=== PATIENT | male | born 1940 | race Caucasian/White ===

== ENCOUNTER 2022-01-15 12:39 | Inpatient (IN) ==
[2022-01-15 13:24] LABS: Appearance Urine Clear (Clear); Bilirubin Urine Negative (Negative); Blood Urine Negative (Negative); Color Urine Yellow; Glucose Urine UA Negative (Negative); Ketones Urine Negative (Negative); Leukocyte Esterase Urine Negative (Negative); Nitrite Urine Negative (Negative); Protein Urine Negative (Negative); Specific Gravity Urine 1.006 (1.000-1.030); Urobilinogen Urine Negative (Negative); pH Urine 6.5 (4.5-7.5)
[2022-01-15 14:07] LABS: Basophils # (auto) 0.06 K/uL (0-0.2); Basophils % (auto) 1.2 %; Eosinophils # (auto) 0.36 K/uL (0-0.50); Eosinophils % (auto) 7.5 %; Hematocrit (blood only) 42.6 % (40.1-51.0); Immature Granulocytes # (auto) 0.01 K/uL (0.00-0.02); Immature Granulocytes % (auto) 0.2 %; Lymphocytes # (auto) 1.51 K/uL (1.2-3.4); Lymphocytes % (auto) 31.4 %; Mean Corpuscular Hemoglobin 31.2 pg (25.0-34.0); Mean Corpuscular Hgb Conc 32.9 g/dL (32.0-36.0); Mean Corpuscular Volume 94.9 fL (80.0-100.0); Mean Platelet Volume 10.6 fL (9.4-12.4); Monocytes # (auto) 0.47 K/uL (0.24-0.82); Monocytes % (auto) 9.8 %; Neutrophils % (auto) 49.9 %; Platelet Count 199 K/uL (130-400); RDW Coefficient of Variation 12.6 % (11.5-14.5); Red Blood Count 4.49 M/uL (4.63-6.08); White Blood Count 4.81 K/ul (4.8-10.8)
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
[2022-01-15 14:24] LABS: INR 1.1 (0.9-1.1); Partial Thromboplastin Time 28.3 Seconds (21.0-31.0); Prothrombin Time 11.7 Seconds (9.0-12.0)
[2022-01-15 14:28] LABS: Alanine Aminotransferase 19 U/L (7-52); Albumin Globulin Ratio 1.3 (0.9-2); Albumin Level 4.3 gm/dl (3.4-5.0); Alkaline Phosphatase 95 U/L (34-104); Anion Gap 4 (3-11); Aspartate Aminotransferase 19 U/L (13-39); BUN Creatinine Ratio 8.5 (10-20); Bilirubin,Total 0.5 mg/dl (0.2-1.0); Blood Urea Nitrogen 9 mg/dl (6-23); Calcium 9.3 mg/dl (8.5-10.1); Carbon Dioxide 32 mmol/L (21-32); Chloride 104 mmol/L (98-107); Creatine Kinase 77 U/L (30-223); Est GFR (African American) 74.9 ml/min; Est GFR (Non-African American) 64.6 ml/min; Globulin 3.2 gm/dl (2.5-4.0); Glucose 91 mg/dl (70-99(Fasting)); Potassium 3.8 mmol/L (3.5-5.1); Sodium 140 mmol/L (136-145); Total Protein 7.5 gm/dl (6.0-8.3)
[2022-01-15 14:32] LABS: Troponin I High Sensitivity 4.7 pg/ml (0-20)
--- NOTE | 2022-01-15 15:46 | XRay Report ---
XR chest 1V portable CLINICAL HISTORY: weakness TECHNIQUE: Single frontal radiograph of the chest was obtained. Comparison: None available at the time of this dictation. FINDINGS: No lines and tubes are seen. Calcified aortic knob is seen. Airspace opacity is seen in the left lowe r lung. No evidence of pleural effusion or pneumothorax. Scoliosis and degenerative changes of the sp ine are seen. IMPRESSION: Airspace opacity in the left lower lung likely represents atelectasis with or without superimposed as piration/pneumonia. ACT 112: Negative or not required by law. Electronically signed by: Mirza Chaparro M.D. 01/15/2022 3:45 PM
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
--- NOTE | 2022-01-15 17:22 | Electrocardiogram Report ---
Test Reason : Blood Pressure : / mmHG Vent. Rate : 054 BPM Atrial Rate : 052 BPM P-R Int : 174 ms QRS Dur : 114 ms QT Int : 440 ms P-R-T Axes : 000 -11 022 degrees QTc Int : 417 ms Poor data quality, interpretation may be adversely affected Sinus bradycardia with Premature atrial complexes Cannot rule out Inferior infarct , age undetermined RV conduction delay Abnormal ECG No previous ECGs available Confirmed by Mehran Lala ([id number]) on 01/15/2022 5:21:41 PM Referred By: [facility] [place] Confirmed By:López Lala
[2022-01-15] MEDS ORDERED: POLYETHYLENE (MIRALAX) 17 GM PACK PO PRN (19:13)
[2022-01-15] MEDS ORDERED: HALOPERIDOL LACTATE 5 MG/ML 1 ML VIAL IV PRN (19:13)
[2022-01-15] MEDS ORDERED: ONDANSETRON INJ 2 MG/ML 2 ML VIAL IV PRN (19:13)
[2022-01-15] MEDS ORDERED: ACETAMINOPHEN 325 MG TAB PO PRN (19:13)
[2022-01-15] MEDS ORDERED: diphenhydrAMINE Capsule 25 MG CAP PO PRN (19:58)
[2022-01-15] MEDS: QUEtiapine FUMARATE 25 MG TABLET PO SCH (20:45)
[2022-01-15] MEDS: haloperidoL 1 MG TAB PO SCH (20:45)
[2022-01-15] MEDS: HALOPERIDOL LACTATE 5 MG/ML 1 ML VIAL IM PRN (22:25)
[2022-01-15] MEDS ORDERED: LORazepam 0.5 MG in SYRINGE 0.25 ML IV STA (23:59)
[2022-01-16] MEDS ORDERED: OLANZapine 10 MG/2.1 ML SDV IM STA (03:10)
[2022-01-16] MEDS: ASPIRIN 81 MG ECTAB PO SCH ×2 (09:47→11:13)
[2022-01-16] MEDS: ATORVASTATIN 20 MG TAB PO SCH ×2 (09:48→11:13)
[2022-01-16] MEDS: CYANOCOBALAMIN (B-12) 500 MCG TABLET PO SCH ×2 (09:48→11:14)
[2022-01-16] MEDS: haloperidoL 1 MG TAB PO SCH ×3 (09:48→23:57)
[2022-01-16] MEDS: QUEtiapine FUMARATE 25 MG TABLET PO SCH ×5 (09:49→23:57)
[2022-01-16] MEDS: PANTOprazole 40 MG TAB PO SCH (09:49)
[2022-01-16] MEDS: HALOPERIDOL LACTATE 5 MG/ML 1 ML VIAL IM PRN (11:19)
[2022-01-16] MEDS ORDERED: OLANZapine 10 MG/2.1 ML SDV IM PRN (12:51)
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
[2022-01-17] MEDS: ASPIRIN 81 MG ECTAB PO SCH (10:08)
[2022-01-17] MEDS: QUEtiapine FUMARATE 25 MG TABLET PO SCH ×3 (10:09→22:04)
[2022-01-17] MEDS: PANTOprazole 40 MG TAB PO SCH (10:10)
[2022-01-17] MEDS: CYANOCOBALAMIN (B-12) 500 MCG TABLET PO SCH (10:10)
[2022-01-17] MEDS: haloperidoL 1 MG TAB PO SCH ×2 (10:10→22:04)
[2022-01-17] MEDS: ATORVASTATIN 20 MG TAB PO SCH (10:11)
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
[2022-01-18 08:28] LABS: Basophils # (auto) 0.07 K/uL (0-0.2); Basophils % (auto) 1.1 %; Eosinophils # (auto) 0.37 K/uL (0-0.50); Eosinophils % (auto) 5.7 %; Hematocrit (blood only) 41.1 % (40.1-51.0); Hemoglobin 13.9 g/dl (14.0-18.0); Immature Granulocytes # (auto) 0.01 K/uL (0.00-0.02); Immature Granulocytes % (auto) 0.2 %; Lymphocytes # (auto) 1.61 K/uL (1.2-3.4); Lymphocytes % (auto) 24.9 %; Mean Corpuscular Hgb Conc 33.8 g/dL (32.0-36.0); Mean Corpuscular Volume 94.7 fL (80.0-100.0); Mean Platelet Volume 10.5 fL (9.4-12.4); Monocytes % (auto) 9.3 %; Neutrophils % (auto) 58.8 %; Platelet Count 183 K/uL (130-400); RDW Coefficient of Variation 12.8 % (11.5-14.5); RDW Standard Deviation 44.7 fL (36.4-46.3); Red Blood Count 4.34 M/uL (4.63-6.08); White Blood Count 6.46 K/ul (4.8-10.8)
[2022-01-18 08:50] LABS: BUN Creatinine Ratio 18.4 (10-20); Creatinine Clr Calc Pharmacy 45.9 ml/min; Est GFR (African American) 68.5 ml/min; Est GFR (Non-African American) 59.1 ml/min; Potassium 4.1 mmol/L (3.5-5.1)
[2022-01-18] MEDS: ATORVASTATIN 20 MG TAB PO SCH (09:58)
[2022-01-18] MEDS: ASPIRIN 81 MG ECTAB PO SCH (09:58)
[2022-01-18] MEDS: CYANOCOBALAMIN (B-12) 500 MCG TABLET PO SCH (09:58)
[2022-01-18] MEDS: PANTOprazole 40 MG TAB PO SCH (09:59)
[2022-01-18] MEDS: QUEtiapine FUMARATE 25 MG TABLET PO SCH ×3 (09:59→20:04)
[2022-01-18] MEDS: haloperidoL 1 MG TAB PO SCH ×2 (09:59→20:03)
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
[2022-01-19] MEDS: ASPIRIN 81 MG ECTAB PO SCH (08:27)
[2022-01-19] MEDS: PANTOprazole 40 MG TAB PO SCH (08:28)
[2022-01-19] MEDS: ATORVASTATIN 20 MG TAB PO SCH (08:28)
[2022-01-19] MEDS: haloperidoL 1 MG TAB PO SCH ×2 (08:28→20:20)
[2022-01-19] MEDS: QUEtiapine FUMARATE 25 MG TABLET PO SCH ×3 (08:28→20:20)
[2022-01-19] MEDS: CYANOCOBALAMIN (B-12) 500 MCG TABLET PO SCH (08:28)
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
[2022-01-20] MEDS: PANTOprazole 40 MG TAB PO SCH (08:13)
[2022-01-20] MEDS: CYANOCOBALAMIN (B-12) 500 MCG TABLET PO SCH (08:13)
[2022-01-20] MEDS: ASPIRIN 81 MG ECTAB PO SCH (08:13)
[2022-01-20] MEDS: QUEtiapine FUMARATE 25 MG TABLET PO SCH ×3 (08:13→20:03)
[2022-01-20] MEDS: haloperidoL 1 MG TAB PO SCH ×2 (08:13→20:03)
[2022-01-20] MEDS: ATORVASTATIN 20 MG TAB PO SCH (08:13)
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
[2022-01-21] MEDS: haloperidoL 1 MG TAB PO SCH (08:36)
[2022-01-21] MEDS: QUEtiapine FUMARATE 25 MG TABLET PO SCH ×2 (08:36→13:57)
[2022-01-21] MEDS: ATORVASTATIN 20 MG TAB PO SCH (08:36)
[2022-01-21] MEDS: CYANOCOBALAMIN (B-12) 500 MCG TABLET PO SCH (08:36)
[2022-01-21] MEDS: PANTOprazole 40 MG TAB PO SCH (08:36)
[2022-01-21] MEDS: ASPIRIN 81 MG ECTAB PO SCH (08:36)
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
[2022-01-22] MEDS: haloperidoL 1 MG TAB PO SCH ×3 (04:51→20:55)
[2022-01-22] MEDS: QUEtiapine FUMARATE 25 MG TABLET PO SCH ×4 (04:51→20:55)
[2022-01-22] MEDS: ASPIRIN 81 MG ECTAB PO SCH (08:04)
[2022-01-22] MEDS: ATORVASTATIN 20 MG TAB PO SCH (08:05)
[2022-01-22] MEDS: CYANOCOBALAMIN (B-12) 500 MCG TABLET PO SCH (08:06)
[2022-01-22] MEDS: PANTOprazole 40 MG TAB PO SCH (08:06)
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
[2022-01-23] MEDS: QUEtiapine FUMARATE 25 MG TABLET PO SCH ×3 (08:47→20:56)
[2022-01-23] MEDS: haloperidoL 1 MG TAB PO SCH ×2 (08:47→20:56)
[2022-01-23] MEDS: ASPIRIN 81 MG ECTAB PO SCH (11:20)
[2022-01-23] MEDS: CYANOCOBALAMIN (B-12) 500 MCG TABLET PO SCH (11:20)
[2022-01-23] MEDS: ATORVASTATIN 20 MG TAB PO SCH (11:20)
[2022-01-23] MEDS: PANTOprazole 40 MG TAB PO SCH (11:21)
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
[2022-01-24] MEDS: PANTOprazole 40 MG TAB PO SCH (09:11)
[2022-01-24] MEDS: ASPIRIN 81 MG ECTAB PO SCH ×2 (09:11→09:20)
[2022-01-24] MEDS: haloperidoL 1 MG TAB PO SCH (09:11)
[2022-01-24] MEDS: CYANOCOBALAMIN (B-12) 500 MCG TABLET PO SCH ×2 (09:11→09:21)
[2022-01-24] MEDS: ATORVASTATIN 20 MG TAB PO SCH (09:11)
[2022-01-24] MEDS: QUEtiapine FUMARATE 25 MG TABLET PO SCH ×2 (09:11→13:44)
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
[2022-01-25] MEDS: haloperidoL 1 MG TAB PO SCH ×3 (00:32→20:23)
[2022-01-25] MEDS: QUEtiapine FUMARATE 25 MG TABLET PO SCH ×4 (00:32→20:23)
[2022-01-25] MEDS: CYANOCOBALAMIN (B-12) 500 MCG TABLET PO SCH (09:11)
[2022-01-25] MEDS: ATORVASTATIN 20 MG TAB PO SCH (09:11)
[2022-01-25] MEDS: LANSOPRAZOLE 30 MG SOLTAB PO SCH (09:12)
[2022-01-25] MEDS: ASPIRIN 81 MG CHEW PO SCH (09:12)
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
[2022-01-26] MEDS: LANSOPRAZOLE 30 MG SOLTAB PO SCH (08:56)
[2022-01-26] MEDS: QUEtiapine FUMARATE 25 MG TABLET PO SCH ×3 (08:56→21:03)
[2022-01-26] MEDS: CYANOCOBALAMIN (B-12) 500 MCG TABLET PO SCH (08:57)
[2022-01-26] MEDS: haloperidoL 1 MG TAB PO SCH ×2 (08:57→21:02)
[2022-01-26] MEDS: ASPIRIN 81 MG CHEW PO SCH (08:57)
[2022-01-26] MEDS: ATORVASTATIN 20 MG TAB PO SCH (08:57)
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
[2022-01-27] MEDS: haloperidoL 1 MG TAB PO SCH (08:43)
[2022-01-27] MEDS: QUEtiapine FUMARATE 25 MG TABLET PO SCH (08:43)
[2022-01-27] MEDS: LANSOPRAZOLE 30 MG SOLTAB PO SCH (08:43)
[2022-01-27] MEDS: CYANOCOBALAMIN (B-12) 500 MCG TABLET PO SCH (08:44)
[2022-01-27] MEDS: ASPIRIN 81 MG CHEW PO SCH (08:44)
[2022-01-27] MEDS: ATORVASTATIN 20 MG TAB PO SCH (08:44)
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
== END 2022-01-27 12:29 | disposition home or self-care (01) | DRG 884 ==
LOC: ED 12:39 → SUATTDRO 15:58 → EDINP 15:58 → 3N 19:32

== ENCOUNTER 2022-09-07 08:02 | Inpatient (IN) ==
[2022-09-07] MEDS ORDERED: ACETAMINOPHEN 1,000 MG/100 ML VIAL IV STA (08:51)
[2022-09-07] MEDS ORDERED: SODIUM CHLORIDE 0.9% 500 ML IV SCH (09:00)
--- NOTE | 2022-09-07 09:06 | Emergency Department Note ---
History of Present Illness General Chief complaint: Fall Stated complaint: FALL, LAC ABOVE EYEBROW Time Seen by Provider: 09/07/22 08:25 History of Present Illness 82-year-old male with past medical history significant for Alzheimer's dementia, primary progressive aphasia, CAD who presents via EMS from [facility] status post unwitnessed fall. at bedside assisting with history. states patient is a resident at memory care unit at [facility] and reportedly was found on the floor next to his bed this morning. He presumedly fell out of bed and hit his head on the floor. The fall was unwitnessed. They are unsure how long patient was on floor. He sustained a laceration above his left eyebrow which were repaired with Steri-Strips at facility. is unsure if there was any LOC. Patient is not on any blood thinners. states he keeps grabbing his head indicating he has pain there. She states he is otherwise at his baseline neurologically. He reportedly was started on an antibiotic for UTI yesterday. Denies recent fever/chills, increasing confusion or change in mental status, recent cold-like symptoms, cough. states patient is on hospice at this time. Home Medications Medication Instructions Recorded Confirmed Type aspirin 81 mg tablet,delayed 81 mg PO QAM #30 tabs 01/26/22 09/07/22 Rx release atorvastatin 20 mg tablet 20 mg PO DAILY #30 tabs 01/26/22 09/07/22 Rx diphenhydramine HCl 25 mg tablet 25 mg PO TID PRN rash/itching #30 01/26/22 09/07/22 Rx (Benadryl Allergy) tabs mecobalamin (vitamin B12) 1,000 1,000 mcg PO DAILY #30 tabs 01/26/22 09/07/22 Rx mcg chewable tablet acetaminophen 325 mg tablet 650 mg PO TID 09/07/22 09/07/22 History haloperidol 0.5 mg tablet 0.5 mg PO BID 09/07/22 09/07/22 History metformin 500 mg tablet 1,000 mg PO DAILY 09/07/22 09/07/22 History omeprazole 20 mg capsule,delayed 20 mg PO DAILY 09/07/22 09/07/22 History release paroxetine HCl 20 mg tablet 20 mg PO DAILY 09/07/22 09/07/22 History Allergies Allergy/AdvReac Type Severity Reaction Status Date / Time divalproex sodium Allergy Intermediate Rash Verified 12/19/21 11:27 atenolol Allergy Mild Verified 12/19/21 11:27 piperacillin [From Zosyn] Allergy Mild rash Verified 12/19/21 11:27 rivastigmine Allergy Mild rash Verified 12/19/21 11:27 Sulfa (Sulfonamide Allergy Mild rash Verified 12/19/21 11:27 Antibiotics) tazobactam [From Zosyn] Allergy Mild rash Verified 12/19/21 11:27 lorazepam [From Ativan] AdvReac Severe Verified 01/27/22 09:06 Past Med/Surg History Medical History CAD (coronary artery disease) Cataract Dementia Hx SBO Hyperglycemia Myocardial infarction Sarcoid Umbilical hernia Vitamin B12 deficiency Surgical History H/O heart artery stent H/O hemorrhoidectomy History of hernia repair History of Whipple procedure Family History Brother History of intestinal surgery AAA (abdominal aortic aneurysm) Mother Dementia Other Family history non-contributory Social History Smoking Status: Never smoker Second Hand Exposure: No; Hx Alcohol Use: No Hx Substance Use: No Preferred Language: Iraqi Communication Ability: Unable Communication Ability Comment: expressive aphagia Visual Impairment: Limited Hearing Ability: Use of Hearing Aid Clinical Transplant Coordinator Required: No Beliefs That Will Affect Care: None marital status: Current Living Situation: Jail current occupational status: retired Other Information That Helps Us Care for You: No Feels Safe at Home: Yes Safety Concerns: Feels Safe At This Time Childhood Exposure to Second-Hand Smoke: No caffeine: Yes Dental Care, Regularly: No Physical Activity Frequency: Does not Exercise Physical Activity Frequency Comment: walks alot Seatbelt Use: always Sunscreen Use: No Do you think of yourself as: straight/heterosexual Assistive Devices: None and Glasses Physical Exam Vital Signs Vital Signs - 24 hr 09/07/22 08:07 09/07/22 08:22 09/07/22 08:55 Temperature 36.5 C Temperature Source Oral Pulse Rate 80 84 78 Pulse Rate [Apical] Pulse Rhythm Regular Pulse Strength Normal Respiratory Rate 20 Respiratory Effort / Characteristics Non-Labored Spontaneous Respiratory Depth Normal Respiratory Pattern Regular Blood Pressure 129/86 Blood Pressure Mean 100 Blood Pressure Position Sitting Pulse Oximetry 96 Oxygen Delivery Method Room Air Sepsis Recent Fever Within 48 Hours No Sepsis New/Unexplained Change in Mental Status No Sepsis Action Taken by Nursing No Action Required 09/07/22 10:33 Temperature Temperature Source Pulse Rate Pulse Rate [Apical] 81 Pulse Rhythm Pulse Strength Respiratory Rate 16 Respiratory Effort / Characteristics Respiratory Depth Respiratory Pattern Blood Pressure Blood Pressure Mean Blood Pressure Position Pulse Oximetry 96 Oxygen Delivery Method Room Air Sepsis Recent Fever Within 48 Hours Sepsis New/Unexplained Change in Mental Status Sepsis Action Taken by Nursing Constitutional: awake/alert. no acute distress. attempting to get out of bed but easily redirected. HEENT: 2cm laceration left eyebrow. Normal conjunctiva.PERRLA. No zamora signs or raccoon eyes. TMs pearly marcial without effusion. Pharynx pink without exudate. Tonsils nonenlarged. Mucus membranes moist Neck: neck is supple, nontender. C-spine nontender Respiratory: lungs are clear to auscultation without wheezes, rhonchi, or rales bilaterally. equal chest rise. normal respiratory effort, no accessory muscle use. Cardiovascular: normal heart sounds without murmur. regular rate and rhythm. GI: abdomen is soft, nontender. nl bowel sounds present throughout. No grimacing with palpation. Umbilical hernia. No rebound tenderness or guarding. MSK: moves all 4 extremities spontaneously. no obvious bony deformity. No grimacing with palpation Peripheral vascular: upper and lower extremities warm and well perfused with palpable radial and pedal pulses, respectively. Neuro: without focal neuro deficits. baseline aphasic. Intermittently follows commands, responds to some questions with shaking head yes/no. Strength equal throughout all for extremities. Psych:appropriate mood and affect. Course Administered Medications Discontinued Medications Sodium Chloride (Nss) 500 mls @ 999 mls/hr IV .Q31M [facility] Stop: 09/07/22 09:30 Last Infusion: 09/07/22 14:25 Dose: 0 mls/hr Documented By: Admin: 09/07/22 09:17 Dose: 999 mls/hr Documented By: ILA Acetaminophen (Ofirmev) 1,000 mg in 100 mls @ 400 mls/hr IV NOW STA Stop: 09/07/22 09:05 Last Admin: 09/07/22 09:17 Dose: Not Given Documented By: ILA Ceftriaxone Sodium 1,000 mg/ (Dextrose) 50 mls @ 100 mls/hr IV ONE STA; Protocol Stop: 09/07/22 11:28 Last Infusion: 09/07/22 14:25 Dose: 0 mls/hr Documented By: Admin: 09/07/22 12:10 Dose: 100 mls/hr Documented By: ILA Dextrose/Sodium Chloride (D5w And 1/2nss) 1,000 mls @ 80 mls/hr IV .[id number] ROSA M Stop: 10/07/22 13:12 Last Infusion: 09/07/22 16:22 Dose: 0 mls/hr Documented By: Admin: 09/07/22 13:25 Dose: 80 mls/hr Documented By: VIRAL Lidocaine HCl (Lidocaine 1% Local 20 Ml Vial) Confirm Administered Dose 1 ml .ROUTE .STK-MED ONE Stop: 09/07/22 11:30 Last Admin: 09/07/22 11:50 Dose: Not Given Documented By: ILA Lidocaine/Epinephrine (Lido/Epinephrine/Sod Bicarb 50 Ml Vial) Confirm Administered Dose 1 ml INFIL .STK-MED ONE Stop: 09/07/22 11:30 Last Admin: 09/07/22 11:50 Dose: 1 ml Documented By: ILA Medical Decision Making Differential Diagnosis mechanical fall, ACS, CVA, intracranial hemorrhage, intra-abdominal pathology, UTI, dementia, as well as other pathologies Laboratory Data Attestation: I reviewed the patient's lab results. 09/07/22 09:10 09/07/22 09:12 Lab Results 09/07/22 09/07/22 09/07/22 Range/Units 09:10 09:10 09:12 WBC 17.75 H (4.8-10.8) K/ul RBC 4.47 L (4.70-6.10) M/uL Hgb 14.5 (14.0-18.0) g/dl Hct 42.9 (42.0-52.0) % MCV 96.0 (80.0-100.0) fL MCH 32.4 (25.0-34.0) pg MCHC 33.8 (32.0-36.0) g/dL RDW Std Deviation 45.9 (36.4-46.3) fL RDW Coeff of Jorge 12.9 (11.5-14.5) % Plt Count 202 (130-400) K/uL MPV 10.6 (9.4-12.4) fL Immature Gran % (Auto) 0.6 % Neut % (Auto) 89.4 % Lymph % (Auto) 3.0 % Haskell % (Auto) 6.7 % Eos % (Auto) 0.1 % Baso % (Auto) 0.2 % Neut # (Auto) 15.87 H (1.40-6.50) K/uL Lymph # (Auto) 0.53 L (1.2-3.4) K/uL Haskell # (Auto) 1.19 H (0.11-0.59) K/uL Eos # (Auto) 0.01 (0-0.50) K/uL Baso # (Auto) 0.04 (0-0.2) K/uL Immature Gran # (Auto) 0.11 (0.01-0.20) K/uL PT 11.5 (9.0-12.0) Seconds INR 1.1 (0.9-1.1) Sodium 136 (136-145) mmol/L Potassium 4.5 (3.5-5.1) mmol/L Chloride 99 (98-107) mmol/L Carbon Dioxide 30 (21-32) mmol/L Anion Gap 7 (3-11) BUN 17 (6-23) mg/dl Creatinine 0.99 (0.6-1.4) mg/dl Est Cr Clr Drug Dosing Not Reportable Est GFR ( Amer) 80.7 ml/min Est GFR (Non-Af Amer) 69.6 ml/min BUN/Creatinine Ratio 17.2 (10-20) Glucose 168 H (70-99(Fasting)) mg/dl Lactate (0.4-2.0) mmol/L Calcium 9.1 (8.6-10.3) mg/dl Total Bilirubin 0.7 (0.2-1.0) mg/dl AST 14 (13-39) U/L ALT 15 (7-52) U/L Alkaline Phosphatase 88 (34-104) U/L Troponin I High Sens 15.3 (0-20) pg/ml Total Protein 6.9 (6.0-8.3) gm/dl Albumin 4.1 (3.4-5.0) gm/dl Globulin 2.8 (2.5-4.0) gm/dl Albumin/Globulin Ratio 1.5 (0.9-2) SARS-CoV-2, RNA, NAAT (NEGATIVE) 09/07/22 09/07/22 Range/Units 09:12 09:12 WBC (4.8-10.8) K/ul RBC (4.70-6.10) M/uL Hgb (14.0-18.0) g/dl Hct (42.0-52.0) % MCV (80.0-100.0) fL MCH (25.0-34.0) pg MCHC (32.0-36.0) g/dL RDW Std Deviation (36.4-46.3) fL RDW Coeff of Jorge (11.5-14.5) % Plt Count (130-400) K/uL MPV (9.4-12.4) fL Immature Gran % (Auto) % Neut % (Auto) % Lymph % (Auto) % Haskell % (Auto) % Eos % (Auto) % Baso % (Auto) % Neut # (Auto) (1.40-6.50) K/uL Lymph # (Auto) (1.2-3.4) K/uL Haskell # (Auto) (0.11-0.59) K/uL Eos # (Auto) (0-0.50) K/uL Baso # (Auto) (0-0.2) K/uL Immature Gran # (Auto) (0.01-0.20) K/uL PT (9.0-12.0) Seconds INR (0.9-1.1) Sodium (136-145) mmol/L Potassium (3.5-5.1) mmol/L Chloride (98-107) mmol/L Carbon Dioxide (21-32) mmol/L Anion Gap (3-11) BUN (6-23) mg/dl Creatinine (0.6-1.4) mg/dl Est Cr Clr Drug Dosing Est GFR ( Amer) ml/min Est GFR (Non-Af Amer) ml/min BUN/Creatinine Ratio (10-20) Glucose (70-99(Fasting)) mg/dl Lactate 2.4 H* (0.4-2.0) mmol/L Calcium (8.6-10.3) mg/dl Total Bilirubin (0.2-1.0) mg/dl AST (13-39) U/L ALT (7-52) U/L Alkaline Phosphatase (34-104) U/L Troponin I High Sens (0-20) pg/ml Total Protein (6.0-8.3) gm/dl Albumin (3.4-5.0) gm/dl Globulin (2.5-4.0) gm/dl Albumin/Globulin Ratio (0.9-2) SARS-CoV-2, RNA, NAAT NEGATIVE (NEGATIVE) Imaging Data My Impression: CXR personally reviewed and per my interpretation demonstrates mild blunting costophrenic angles. No overt opacities indicative of pneumonia. Radiologist's Impression: Chest X-Ray 09/07/22 08:51 XR chest 1V portable HISTORY: 82 years-old Male trauma acute chest trauma status post fall COMPARISON: 01/15/2022 TECHNIQUE: AP view of the chest FINDINGS: Cardiac silhouette is upper limits of normal in size. No pneumothorax or overt pulmonary edema. Mild blunting the lateral costophrenic angles suggestive atelectasis versus trace effusions with mild subsegmental left basilar densities. Degenerative changes of the shoulders and spine. IMPRESSION: 1. Mild blunting of the costophrenic angle suggestive of atelectasis versus trace pleural effusions. 2. Mild subsegmental left basilar opacities, likely atelectatic. ACT 112: Negative or not required by law. The above report was generated using voice recognition software. It may contain grammatical, syntax or spelling errors. Electronically signed by: Ko Clemente M.D. 09/07/2022 9:[address] 09/07/22 08:52 CT cervical spine wo con CLINICAL HISTORY: 82 years-old Male with Trauma. Acute neck pain status post trauma COMPARISON: Head CT of same day TECHNIQUE: Multiple axial CT images of the cervical spine were obtained without contrast. A dose lowering technique was utilized adhering to the principles of ALARA. FINDINGS: Demineralized appearance of the bones with multilevel changes. Study is mildly motion degraded. Apparent cortical irregularity of the odontoid process is likely artifactual. Minimal superior end plate compression of the T2 vertebral body is age-indeterminate however is favored to be chronic. The cervical soft tissues appear unremarkable. The visualized lung apices appear clear. IMPRESSION: No acute cervical spine fracture or subluxation. ACT 112: Negative or not required by law. The above report was generated using voice recognition software. It may contain grammatical, syntax or spelling errors. Electronically signed by: Ko Clemente M.D. 09/07/2022 9:[address] 09/07/22 08:52 CT head/brain wo con CLINICAL HISTORY: 82 years-old Male with Trauma. Acute neck pain status post trauma TECHNIQUE: Multiple axial CT images of the head were obtained without contrast. A dose lowering technique was utilized adhering to the principles of ALARA. CT DOSE: 1071.51 mGy.cm COMPARISON: CT cervical spine of same day FINDINGS: There is a 2.2 x 1.0 cm acute intraparenchymal hemorrhagic focus within the subcortical left frontal lobe on image 20 series 2 with mild surrounding vasogenic edema. There are a few additional subcentimeter foci of cortical and subcortical hemorrhage within the superior left frontal lobe as seen on images 23 and 24 of series 2. Cerebral vascular calcifications. There is no associated midline shift, intracranial mass, hydrocephalus, territorial ischemia or abnormal extra-axial collection. Involutional changes with chronic microvascular ischemic disease. The calvarium is intact. Complete opacification of the right sphenoid sinus. Mild mucosal thickening of the ethmoid air cells. Tiny left anterior frontal scalp contusion. Prior bilateral lens repair. IMPRESSION: 1. 2.2 cm acute intraparenchymal left frontal lobe hemorrhage with mild surrounding vasogenic edema. 2. There are a few tiny subcentimeter hemorrhagic foci of the superior and anterior aspect of the left frontal lobe suggestive of small associated cortical contusions. 3. No significant mass effect or midline shift. 4. No acute calvarial fracture. Findings were discussed with Julieta Nuñez at 9:40 AM on 09/07/2022. ACT 112: Negative or not required by law. The above report was generated using voice recognition software. It may contain grammatical, syntax or spelling errors. Electronically signed by: Ko Clemente M.D. 09/07/2022 9:41 AM MDM Narrative 82-year-old male with advanced Alzheimer's dementia and baseline aphasia who was brought to the emergency department via EMS from [facility] s/p unwitnessed fall. Vital signs in ED within normal limits, afebrile. IV access was established and labs were obtained. CBC demonstrates leukocytosis of 18 with left shift. No anemia. CMP demonstrates no significant electrolyte abnormalities. Renal function within normal limits. LFTs unremar kable. Lactate elevated at 2.4. Troponin negative. Urinalysis demonstrates blood and bacteria. CXR performed and demonstrates atelectasis vs trace pleural effusions as well as left basilar opacities. Given unwitnessed fall and obvious trauma to the head, head CT and cervical spine CT were obtained. Head CT was significant for 2.2 cm acute intraparenchymal left frontal lobe hemorrhage. No midline shift or mass effect. Cervical spine CT negative for acute fracture or subluxation. He was treated with IV Tylenol and fluids as well as empiric Cefepime for likely UTI. Clinically, patient is nontoxic appearing in no acute distress. Neurologically at his baseline without focal deficits. He is attempting to get out of bed but is easily redirected. No significant agitation or combative behavior. Lungs CTA. Abdomen benign. There is a 2cm laceration above his left eyebrow with temporary repair via steri strips. See official laceration repair procedure below. No further signs of traumatic injury on exam. Patient was re-evaluated on multiple occasions and remained in stable condition with no new concerns. was updated on all exam findings and test results. A discussion was held with , my attending Dr. Stephenson, and myself regarding treatment options. would like to keep patient comfort measures and has declined any intervention that may be required for intra-cranial hemorrhage. She has confirmed patient is DNR/DNI. She is okay with IV antibiotics and any further palliative therapies that may be needed. She is concerned for patient's safety about going back to [place] and is requesting patient stay in hospital for at least a day for close monitoring. I do not feel this is unreasonable. Case was discussed with hospitalist, Dr. Antoine, who reviewed patient and g raciously accepted him to his service for admission and further management. Patient was admitted in stable condition. Laceration Repair Patient was seen and evaluated by myself. Risks and benefits of performing primary wound closure versus no repair were discussed with the patient's who verbalizes understanding. Verbal consent was obtained prior to performing the procedure. 7 cc of 1% Lidocaine was used to perform anesthetization within wound bed. The wound was cleansed and prepped in the typical sterile fashion utilizing normal saline and Betadine. The wound was sterilely draped. Once proper anesthetization was established, the wound was further examined and demonstrated 2 cm . The wound was copiously irrigated with normal saline and Betadine. The wound was closed using 4 simple, 4-0 nylon sutures with the wound edges being well approximated. Patient tolerated the procedure well. No complications were met. The wound was cleansed and dressed with a Bacitracin dressing. Sutures will need to be removed in 5 to 7 days. Impression & Plan Unwitnessed fall, Traumatic intraparenchymal hemorrhage, Advanced dementia, Aphasia, Leukocytosis, Laceration of eyebrow and forehead Discharge Plan Visit Data Chief Complaint: Fall Stated Complaint: FALL, LAC ABOVE EYEBROW ED Provider: Vu Stephenson ED Midlevel Provider: Magdalena Nuñez Discharge Problem: Unwitnessed fall, Traumatic intraparenchymal hemorrhage, Advanced dementia, Aphasia, Leukocytosis, Laceration of eyebrow and forehead Patient Disposition: Admitted As Inpatient Discharge Instructions Interventions: ED Discharge Assessment Last Done: 09/07/22 12:55
--- NOTE | 2022-09-07 09:20 | XRay Report ---
XR chest 1V portable HISTORY: 82 years-old Male trauma acute chest trauma status post fall COMPARISON: 01/15/2022 TECHNIQUE: AP view of the chest FINDINGS: Cardiac silhouette is upper limits of normal in size. No pneumothorax or overt pulmonary edema. Mild blunting the lateral costophrenic angles suggestive atelectasis versus trace effusions with mild subs egmental left basilar densities. Degenerative changes of the shoulders and spine. IMPRESSION: 1. Mild blunting of the costophrenic angle suggestive of atelectasis versus trace pleural effusions. 2. Mild subsegmental left basilar opacities, likely atelectatic. ACT 112: Negative or not required by law. The above report was generated using voice recognition software. It may contain grammatical, syntax o r spelling errors. Electronically signed by: Ko Clemente M.D. 09/07/2022 9:19 AM
--- NOTE | 2022-09-07 09:43 | CT Scan Report ---
CT head/brain wo con CLINICAL HISTORY: 82 years-old Male with Trauma. Acute neck pain status post trauma TECHNIQUE: Multiple axial CT images of the head were obtained without contrast. A dose lowering tech nique was utilized adhering to the principles of ALARA. CT DOSE: 1071.51 mGy.cm COMPARISON: CT cervical spine of same day FINDINGS: There is a 2.2 x 1.0 cm acute intraparenchymal hemorrhagic focus within the subcortical left frontal lobe on image 20 series 2 with mild surrounding vasogenic edema. There are a few additional subcentim eter foci of cortical and subcortical hemorrhage within the superior left frontal lobe as seen on arielle ges 23 and 24 of series 2. Cerebral vascular calcifications. There is no associated midline shift, in tracranial mass, hydrocephalus, territorial ischemia or abnormal extra-axial collection. Involutional changes with chronic microvascular ischemic disease. The calvarium is intact. Complete opacification of the right sphenoid sinus. Mild mucosal thickening of the ethmoid air cells. Tiny left anterior frontal scalp contusion. Prior bilateral lens repair. IMPRESSION: 1. 2.2 cm acute intraparenchymal left frontal lobe hemorrhage with mild surrounding vasogenic edema. 2. There are a few tiny subcentimeter hemorrhagic foci of the superior and anterior aspect of the lef t frontal lobe suggestive of small associated cortical contusions. 3. No significant mass effect or midline shift. 4. No acute calvarial fracture. Findings were discussed with Julieta Nuñez at 9:40 AM on 09/07/2022. ACT 112: Negative or not required by law. The above report was generated using voice recognition software. It may contain grammatical, syntax o r spelling errors. Electronically signed by: Ko Clemente M.D. 09/07/2022 9:41 AM
[2022-09-07 09:49] LABS: Basophils # (auto) 0.04 K/uL (0-0.2); Basophils % (auto) 0.2 %; Eosinophils # (auto) 0.01 K/uL (0-0.50); Eosinophils % (auto) 0.1 %; Hematocrit (blood only) 42.9 % (42.0-52.0); Hemoglobin 14.5 g/dl (14.0-18.0); Immature Granulocytes # (auto) 0.11 K/uL (0.01-0.20); Immature Granulocytes % (auto) 0.6 %; Lymphocytes # (auto) 0.53 K/uL (1.2-3.4); Mean Corpuscular Hemoglobin 32.4 pg (25.0-34.0); Mean Corpuscular Hgb Conc 33.8 g/dL (32.0-36.0); Mean Platelet Volume 10.6 fL (9.4-12.4); Monocytes # (auto) 1.19 K/uL (0.11-0.59); Monocytes % (auto) 6.7 %; Neutrophils # (auto) 15.87 K/uL (1.40-6.50); Neutrophils % (auto) 89.4 %; Platelet Count 202 K/uL (130-400); RDW Coefficient of Variation 12.9 % (11.5-14.5); RDW Standard Deviation 45.9 fL (36.4-46.3); Red Blood Count 4.47 M/uL (4.70-6.10); White Blood Count 17.75 K/ul (4.8-10.8)
--- NOTE | 2022-09-07 09:59 | CT Scan Report ---
CT cervical spine wo con CLINICAL HISTORY: 82 years-old Male with Trauma. Acute neck pain status post trauma COMPARISON: Head CT of same day TECHNIQUE: Multiple axial CT images of the cervical spine were obtained without contrast. A dose low ering technique was utilized adhering to the principles of ALARA. FINDINGS: Demineralized appearance of the bones with multilevel changes. Study is mildly motion degra ded. Apparent cortical irregularity of the odontoid process is likely artifactual. Minimal superior e nd plate compression of the T2 vertebral body is age-indeterminate however is favored to be chronic. The cervical soft tissues appear unremarkable. The visualized lung apices appear clear. IMPRESSION: No acute cervical spine fracture or subluxation. ACT 112: Negative or not required by law. The above report was generated using voice recognition software. It may contain grammatical, syntax o r spelling errors. Electronically signed by: Ko Clemente M.D. 09/07/2022 9:57 AM
[2022-09-07 10:04] LABS: Alanine Aminotransferase 15 U/L (7-52); Albumin Globulin Ratio 1.5 (0.9-2); Albumin Level 4.1 gm/dl (3.4-5.0); Alkaline Phosphatase 88 U/L (34-104); Anion Gap 7 (3-11); Aspartate Aminotransferase 14 U/L (13-39); BUN Creatinine Ratio 17.2 (10-20); Bilirubin,Total 0.7 mg/dl (0.2-1.0); Blood Urea Nitrogen 17 mg/dl (6-23); Calcium 9.1 mg/dl (8.6-10.3); Carbon Dioxide 30 mmol/L (21-32); Chloride 99 mmol/L (98-107); Est GFR (African American) 80.7 ml/min; Est GFR (Non-African American) 69.6 ml/min; Globulin 2.8 gm/dl (2.5-4.0); Glucose 168 mg/dl (70-99(Fasting)); Potassium 4.5 mmol/L (3.5-5.1); Sodium 136 mmol/L (136-145); Total Protein 6.9 gm/dl (6.0-8.3)
[2022-09-07 10:10] LABS: Troponin I High Sensitivity 15.3 pg/ml (0-20)
[2022-09-07 10:20] LABS: INR 1.1 (0.9-1.1); Prothrombin Time 11.5 Seconds (9.0-12.0)
[2022-09-07] MEDS ORDERED: CEFEPIME 2,000 MG/20 ML VIAL IV STA (10:28)
[2022-09-07] MEDS ORDERED: cefTRIAXone SODIUM 1,000 MG in DEXTROSE 5% AD-VAN 50 ML IV STA (10:59)
--- NOTE | 2022-09-07 11:21 | History & Physical Report ---
Date of Service September 07, 2022 Assessment & Plan (1) Goals of care, counseling/discussion: Plan: Discussed with and son at bedside. Main goal is for comfort, however ok for antibiotics and intravenous fluids. Currently on hospice care on the memory care unit at [facility] but his is concerned about him going back given level of support. Discussed arranging increased hospice care at [facility] but they wish to have him admitted at this time to see how progresses/declines. (2) Intracranial hemorrhage: Plan: Stop aspirin. Given main goal is for comfort close blood pressure monitoring not required and will just get vital signs as needed. Discussed prophylactic anti-seizure medications with Dr Keith jennings recommended at this time, only treat if he has a seizure. (3) Hematuria: Plan: Started yesterday. Concern for UTI at [facility]. Started on MacroBID yesterday. Patient does not appear able to void by himself currently therefore carrillo catheter will be placed for comfort Unclear how much of his acute deterioration is due to this rather than intracranial hemorrhage since he appeared to decline a lot yesterday prior to the fall which presumably caused his intracranial hemorrhage. For this reason family wish to actively treat infection therefore will get UA and treat with ceftriaxone although my suspicion for something worse than a UTI is high. Family did not want further CT scans patient is not a candidate for any intervention other than treatment for UTI. Follow up blood/urine cultures (4) Dementia: Plan: Severe memory difficulties and aphasia at baseline. However he is ambulatory and was feeding himself up until yesterday. (5) Diarrhea: Plan: For the last month - unclear etiology. Discussed workup and declined. Of note he was started on paroxetine on August 11 which may explain his nausea at that time and current diarrhea - will d/c given increased risk of IC bleed as well but will have to closely monitor for withdrawal and consider Prozac to manage if able to swallow pills. Also on metformin which we will d/c Discussed possibility of antibiotics making this worse (6) Scalp laceration: Plan: Sutured in the ER Plan VTE Prophylaxis - contraindicated chemical prophylaxis Diet - clear liquids, advance as tolerated Disposition - admit to med/surg Admission and Anticipated Discharge Date Admission Date: September 07, 2022 History of Present Illness Chief Complaint: Fall, altered mental state Primary Care Provider: [facility] [place] Jose Patel is an 82 year old male on hospice at the memory care unit at [facility] who presents to the ER following a fall. Unable to get any history from patient. At baseline he is aphasic but generally mobile and feeds himself. Needs help getting dressed. Yesterday he was much less alert and sleeping throughout the day with hematuria. He was diagnosed with a UTI by hospice although unclear if urine sample was taken. He was started on Macrobid. This morning he was found on the floor next to his bed. He sustained a laceration to his left eyebrow. Reportedly he has been moving all four limbs since but generally isn't able to comply with neurological exams even prior to all of this. CT head showed a intraparenchymal left frontal lobe hemorrhage. He takes an a spirin daily but no anticoagulation. On discussion with the family since he is on hospice care they would not want any intervention for this if it were to progress. Allergies Allergy/AdvReac Type Severity Reaction Status Date / Time divalproex sodium Allergy Intermediate Rash Verified 12/19/21 11:27 atenolol Allergy Mild Verified 12/19/21 11:27 piperacillin [From Zosyn] Allergy Mild rash Verified 12/19/21 11:27 rivastigmine Allergy Mild rash Verified 12/19/21 11:27 Sulfa (Sulfonamide Allergy Mild rash Verified 12/19/21 11:27 Antibiotics) tazobactam [From Zosyn] Allergy Mild rash Verified 12/19/21 11:27 lorazepam [From Ativan] AdvReac Severe Verified 01/27/22 09:06 Home Medications Medication Instructions Recorded Confirmed Type aspirin 81 mg tablet,delayed 81 mg PO QAM #30 tabs 01/26/22 09/07/22 Rx release atorvastatin 20 mg tablet 20 mg PO DAILY #30 tabs 01/26/22 09/07/22 Rx diphenhydramine HCl 25 mg tablet 25 mg PO TID PRN rash/itching #30 01/26/22 09/07/22 Rx (Benadryl Allergy) tabs mecobalamin (vitamin B12) 1,000 1,000 mcg PO DAILY #30 tabs 01/26/22 09/07/22 Rx mcg chewable tablet acetaminophen 325 mg tablet 650 mg PO TID 09/07/22 09/07/22 History haloperidol 0.5 mg tablet 0.5 mg PO BID 09/07/22 09/07/22 History metformin 500 mg tablet 1,000 mg PO DAILY 09/07/22 09/07/22 History omeprazole 20 mg capsule,delayed 20 mg PO DAILY 09/07/22 09/07/22 History release paroxetine HCl 20 mg tablet 20 mg PO DAILY 09/07/22 09/07/22 History Past Med/Surg History Medical History CAD (coronary artery disease) Cataract Dementia Hx SBO Hyperglycemia Myocardial infarction Sarcoid Umbilical hernia Vitamin B12 deficiency Surgical History H/O heart artery stent H/O hemorrhoidectomy History of hernia repair History of Whipple procedure Family History Brother History of intestinal surgery AAA (abdominal aortic aneurysm) Mother Dementia Other Family history non-contributory Social History Smoking Status: Never smoker Second Hand Exposure: No; Hx Alcohol Use: No Hx Substance Use: No Preferred Language: Luxembourgish Communication Ability: Unable Communication Ability Comment: expressive aphagia Visual Impairment: Limited Hearing Ability: Use of Hearing Aid Hr Systems Analyst Required: No Beliefs That Will Affect Care: None marital status: Current Living Situation: [facility] current occupational status: retired Other Information That Helps Us Care for You: No Feels Safe at Home: Yes Safety Concerns: Feels Safe At This Time Childhood Exposure to Second-Hand Smoke: No caffeine: Yes Dental Care, Regularly: No Physical Activity Frequency: Does not Exercise Physical Activity Frequency Comment: walks alot Seatbelt Use: always Sunscreen Use: No Do you think of yourself as: straight/heterosexual Assistive Devices: None and Glasses Review of Systems Review of Systems: Unobtainable due to cognitive status Physical Exam Constitutional: + not well nourished and no acute distress Eyes: PERRL, conjunctivae normal, anicteric sclerae Respiratory: normal respiratory effort (shallow); no respiratory distress Auscultation: breath sounds present, no diminished lung sounds, no crackles, no rales, no rhonchi and no wheezes Cardiovascular: RRR, no murmur, no edema Gastrointestinal (Abdomen): normal bowel sounds, soft, nontender, no hepatosplenomegaly Skin: scalp laceration sutured in the ER, dressings not removed Neurologic: moves all extremities (reportedly by family although I was unable to confirm this) and awake (occasionally to voice) Psychiatric: Orientation: alert (occasionally to voice); + not oriented x 3 Genitourinary: no CVA tenderness Results & Data Results & Data Vital Signs (Past 12 Hours) Vital Signs Temp Pulse Resp BP Pulse Ox O2 Del Method 09/07/22 08:55 78 09/07/22 08:22 84 09/07/22 08:07 36.5 C 80 20 129/86 96 Room Air Laboratory Results Abnormal lab results 09/07/22 09/07/22 09/07/22 Range/Units 09:10 09:12 09:12 WBC 17.75 H (4.8-10.8) K/ul RBC 4.47 L (4.70-6.10) M/uL Neut # (Auto) 15.87 H (1.40-6.50) K/uL Lymph # (Auto) 0.53 L (1.2-3.4) K/uL Stephenson # (Auto) 1.19 H (0.11-0.59) K/uL Glucose 168 H (70-99(Fasting)) mg/dl Lactate 2.4 H* (0.4-2.0) mmol/L Urine Appearance (Clear) Urine pH (4.5-7.5) Urine Protein (Negative) Urine Blood (Negative) Urine Urobilinogen (Negative) Ur Leukocyte Esterase (Negative) Urine RBC (0-4) /hpf Urine WBC (0-5) /hpf Urine Bacteria (Negative) Enterobacterales (PCR) (NotDetected) Proteus species (PCR) (NotDetected) 09/07/22 09/07/22 Range/Units 12:05 Unknown WBC (4.8-10.8) K/ul RBC (4.70-6.10) M/uL Neut # (Auto) (1.40-6.50) K/uL Lymph # (Auto) (1.2-3.4) K/uL Stephenson # (Auto) (0.11-0.59) K/uL Glucose (70-99(Fasting)) mg/dl Lactate (0.4-2.0) mmol/L Urine Appearance Cloudy A (Clear) Urine pH >= 9.0 H (4.5-7.5) Urine Protein 2+ H (Negative) Urine Blood 3+ H (Negative) Urine Urobilinogen Positive H (Negative) Ur Leukocyte Esterase 1+ H (Negative) Urine RBC >30 H (0-4) /hpf Urine WBC >30 H (0-5) /hpf Urine Bacteria 4+ H (Negative) Enterobacterales (PCR) DETECTED A (NotDetected) Proteus species (PCR) DETECTED A (NotDetected) Diagnostic Findings XR chest 1V portable HISTORY: 82 years-old Male trauma acute chest trauma status post fall COMPARISON: 01/15/2022 TECHNIQUE: AP view of the chest FINDINGS: Cardiac silhouette is upper limits of normal in size. No pneumothorax or overt pulmonary edema. Mild blunting the lateral costophrenic angles suggestive atelectasis versus trace effusions with mild subsegmental left basilar dens ities. Degenerative changes of the shoulders and spine. IMPRESSION: 1. Mild blunting of the costophrenic angle suggestive of atelectasis versus trace pleural effusions. 2. Mild subsegmental left basilar opacities, likely atelectatic. CT head/brain wo con CLINICAL HISTORY: 82 years-old Male with Trauma. Acute neck pain status post trauma TECHNIQUE: Multiple axial CT images of the head were obtained without contrast. A dose lowering technique was utilized adhering to the principles of ALARA. CT DOSE: 1071.51 mGy.cm COMPARISON: CT cervical spine of same day FINDINGS: There is a 2.2 x 1.0 cm acute intraparenchymal hemorrhagic focus within the subcortical left frontal lobe on image 20 series 2 with mild surrounding vasogenic edema. There are a few additional subcentimeter foci of cortical and subcortical hemorrhage within the superior left frontal lobe as seen on images 23 and 24 of series 2. Cerebral vascular calcifications. There is no associated midline shift, intracranial mass, hydrocephalus, territorial ischemia or abnormal extra-axial collection. Involutional changes with chronic microvascular ischemic disease. The calvarium is intact. Complete opacification of the right sphenoid sinus. Mild mucosal thickening of the ethmoid air cells. Tiny left anterior frontal scalp contusion. Prior bilateral lens repair. IMPRESSION: 1. 2.2 cm acute intraparenchymal left frontal lobe hemorrhage with mild surrounding vasogenic edema. 2. There are a few tiny subcentimeter hemorrhagic foci of the superior and anterior aspect of the left frontal lobe suggestive of small associated cortical contusions. 3. No significant mass effect or midline shift. 4. No acute calvarial fracture. CT cervical spine wo con CLINICAL HISTORY: 82 years-old Male with Trauma. Acute neck pain status post trauma COMPARISON: Head CT of same day TECHNIQUE: Multiple axial CT images of the cervical spine were obtained without contrast. A dose lowering technique was utilized adhering to the principles of ALARA. FINDINGS: Demineralized appearance of the bones with multilevel changes. Study is mildly motion degraded. Apparent cortical irregularity of the odontoid process is likely artifactual. Minimal superior end plate compression of the T2 vertebral body is age-indeterminate however is favored to be chronic. The cervical soft tissues appear unremarkable. The visualized lung apices appear clear. IMPRESSION: No acute cervical spine fracture or subluxation. Medications Administered ER Medications Given: NSS 500 ml bolus Acetaminophen 1g IV ECG Rate (beats per minute): 82 Rhythm: normal sinus Findings: + PAC; no acute ischemic change Comparison ECG Date: from (January 15, 2022) Change: no significant change Code Status & VTE Plan Code Status DNR/DNI VTE Prophylaxis Plan VTE Prophylaxis will be ordered: No PG Care Time/CCT Total # of Minutes Spent Total Time Spent with Patient: Total time spent is greater than 50% in coordination of care (as documented) at patient's floor/unit and/or counseling patient: Coding Level of Care Code 25250 INT INP/OBS CARE 3/75MIN Diagnoses Goals of care, counseling/discussion Z71.89 Intracranial hemorrhage I62.9 Hematuria R31.9 Dementia F03.91 Dementia behavioral disturbance: with behavioral disturbance Dementia type: unspecified type Diarrhea R19.7 Scalp laceration S01.01XA (4) Dementia Dementia behavioral disturbance: with behavioral disturbance Dementia type: unspecified type Qualified Code(s): F03.91 - Unspecified dementia with behavioral disturbance
[2022-09-07] MEDS ORDERED: LIDOCAINE 1% LOCAL 20 ML VIAL ONE (11:29)
[2022-09-07] MEDS ORDERED: LIDO/EPINEPHRINE/SOD BICARB 50 ML VIAL INFIL ONE (11:29)
[2022-09-07 11:55] LABS: Appearance Urine Cloudy (Clear); Bilirubin Urine Negative (Negative); Blood Urine 3+ (Negative); Color Urine Amber; Glucose Urine UA Negative (Negative); Ketones Urine Negative (Negative); Leukocyte Esterase Urine 1+ (Negative); Nitrite Urine Negative (Negative); Protein Urine 2+ (Negative); Specific Gravity Urine 1.015 (1.000-1.030); Urobilinogen Urine Positive (Negative); pH Urine >= 9.0 (4.5-7.5)
[2022-09-07 12:20] LABS: Bacteria Urine 4+ (Negative); Epithelial Cell Urine 0-5 /lpf (0-5); RBC Urine >30 /hpf (0-4); WBC Urine >30 /hpf (0-5)
[2022-09-07] MEDS ORDERED: D5W AND 1/2NSS 1,000 ML IV SCH (13:13)
[2022-09-07] MEDS ORDERED: MoRPHine SULFATE 10 MG/0.5 ML UDP PO PRN ×2 (13:13→16:41)
[2022-09-07] MEDS ORDERED: HYOSCYAMINE SULFATE 0.125 MG TAB SL PRN (13:13)
[2022-09-07] MEDS ORDERED: ONDANSETRON 4 MG OD TAB SL PRN (13:13)
[2022-09-07] MEDS ORDERED: MoRPHine SULFATE 2 MG/ML CARP IV PRN ×2 (13:13→16:41)
[2022-09-07] MEDS ORDERED: haloperidoL 1 MG TAB PO PRN (13:13)
[2022-09-07] MEDS ORDERED: ATROPINE SULFATE 1% OP SOLN 5 ML BTL SL PRN (13:13)
[2022-09-07] MEDS ORDERED: ONDANSETRON INJ 2 MG/ML 2 ML VIAL IV PRN (13:13)
[2022-09-07] MEDS ORDERED: GLYCOPYRROLATE 0.2 MG/ML VIAL IV PRN (13:13)
[2022-09-07] MEDS ORDERED: haloperidoL 0.5 MG TAB PO PRN (14:41)
[2022-09-07] MEDS ORDERED: ACETAMINOPHEN 325 MG TAB PO SCH (15:00)
--- NOTE | 2022-09-07 15:16 | Palliative Care Consultation ---
Date of Consultation September 07, 2022 Assessment & Plan (1) Pain: He has tylenol routine dosing at [facility] for arthritis pain and appears to have pain in his head after fall. Order placed for routine tylenol. He is able to tolerate po medications with ice cream per his . Morphine is also ordered prn for pain not controlled with routine tylenol. (2) Agitation: He has history of agitation and pain, UTI and hospitalization are all likely to aggravate his agitation. Haldol has been ordered as needed. Would avoid anticholinergics for secretions which could also compound the problem. As he is able to take small amounts of po, I discussed IV fluids with his and son. He could potentially have symptoms of increased secretions, edema and dyspnea with IVF. They are ok with just monitoring him on po intake. (3) Palliative care encounter: I spoke with Mrs. Patel and her son at bedside. They confirm that focus of care for "Gilbert" is comfort and symptom management. They understand that bleeding from ICH may progress and that even under the best of circumstances, Gilbert is not likely to return to his baseline prior to admission. They are concerned that he may require higher level of care than [facility] can provide. They are very pleased with hospice care and want to continue hospice on discharge if possible. We discussed options to return to [facility] with hospice versus SNF with hospice. They would like to see how he does over the next couple days and then determine best plan of care moving forward. Palliative care will follow. History of Present Illness Reason for Consultation: goals of care Requesting Physician: Dr. Antoine Attending Physician: Reggie Antoine MD History of Present Illness 82 yo gentleman with history of dementia and primary progressive aphasia, as well as CAD who resides at [facility]. He has been on hospice since January of last year. His reports that at baseline his appetite is fair and he is able to feed himself. He had been ambulating to the dining room. He has had agitated behaviors in the past and has been on multiple medications including seroquel, zyprexa and paroxetine. He unfortunately had a fall at [facility] and was found to have a 2.2cm left frontal ICH. He also appears to have a UTI with culture pending. He has been started on rocephin for treatment of UTI. He is awake and speaking but speech is unintelligible which is pretty much his baseline. He has been grabbing at his head at times and his notes that he is doing this less after IV tylenol. Allergies Allergy/AdvReac Type Severity Reaction Status Date / Time divalproex sodium Allergy Intermediate Rash Verified 12/19/21 11:27 atenolol Allergy Mild Verified 12/19/21 11:27 piperacillin [From Zosyn] Allergy Mild rash Verified 12/19/21 11:27 rivastigmine Allergy Mild rash Verified 12/19/21 11:27 Sulfa (Sulfonamide Allergy Mild rash Verified 12/19/21 11:27 Antibiotics) tazobactam [From Zosyn] Allergy Mild rash Verified 12/19/21 11:27 lorazepam [From Ativan] AdvReac Severe Verified 01/27/22 09:06 Home Medications Medication Instructions Recorded Confirmed Type aspirin 81 mg tablet,delayed 81 mg PO QAM #30 tabs 01/26/22 09/07/22 Rx release atorvastatin 20 mg tablet 20 mg PO DAILY #30 tabs 01/26/22 09/07/22 Rx diphenhydramine HCl 25 mg tablet 25 mg PO TID PRN rash/itching #30 01/26/22 09/07/22 Rx (Benadryl Allergy) tabs mecobalamin (vitamin B12) 1,000 1,000 mcg PO DAILY #30 tabs 01/26/22 09/07/22 Rx mcg chewable tablet acetaminophen 325 mg tablet 650 mg PO TID 09/07/22 09/07/22 History haloperidol 0.5 mg tablet 0.5 mg PO BID 09/07/22 09/07/22 History metformin 500 mg tablet 1,000 mg PO DAILY 09/07/22 09/07/22 History omeprazole 20 mg capsule,delayed 20 mg PO DAILY 09/07/22 09/07/22 History release paroxetine HCl 20 mg tablet 20 mg PO DAILY 09/07/22 09/07/22 History Patient History Medical History CAD (coronary artery disease) Cataract Dementia Hx SBO Hyperglycemia Myocardial infarction Sarcoid Umbilical hernia Vitamin B12 deficiency Surgical History H/O heart artery stent H/O hemorrhoidectomy History of hernia repair History of Whipple procedure Family History Brother History of intestinal surgery AAA (abdominal aortic aneurysm) Mother Dementia Other Family history non-contributory Social History Smoking Status: Never smoker Second Hand Exposure: No; Hx Alcohol Use: No Hx Substance Use: No Preferred Language: Setswana Communication Ability: Unable Communication Ability Comment: expressive aphagia Visual Impairment: Limited Hearing Ability: Use of Hearing Aid Statement Processor Required: No Beliefs That Will Affect Care: None marital status: Current Living Situation: Senior Living current occupational status: retired Other Information That Helps Us Care for You: No Feels Safe at Home: Yes Safety Concerns: Feels Safe At This Time Childhood Exposure to Second-Hand Smoke: No caffeine: Yes Dental Care, Regularly: No Physical Activity Frequency: Does not Exercise Physical Activity Frequency Comment: walks alot Seatbelt Use: always Sunscreen Use: No Do you think of yourself as: straight/heterosexual Assistive Devices: None and Glasses Review of Systems Review of Systems: Unobtainable due to cognitive status Physical Exam Constitutional: + frail appearing; no acute distress Respiratory: normal respiratory effort; no labored breathing Musculoskeletal: Extremities: + muscle atrophy Neurologic: moves all extremities and awake Speech / Cognition: + abnormal cognition aphasia Results & Data Vital Signs (Past 12 Hours) Vital Signs Temp Pulse Pulse Pulse Resp BP BP 09/07/22 13:20 98.6 F 88 16 148/76 H 09/07/22 12:55 79 18 129/77 09/07/22 12:25 75 09/07/22 12:09 77 16 09/07/22 10:33 81 16 09/07/22 08:55 78 09/07/22 08:22 84 09/07/22 08:07 97.7 F 80 20 129/86 Pulse Ox O2 Del Method 09/07/22 13:20 95 Room Air 09/07/22 12:55 96 Room Air 09/07/22 12:25 09/07/22 12:09 96 Room Air 09/07/22 10:33 96 Room Air 09/07/22 08:55 09/07/22 08:22 09/07/22 08:07 96 Room Air PG Care Time/CCT Total # of Minutes Spent Total Time Spent with Patient: Total time spent is greater than 50% in coordination of care (as documented) at patient's floor/unit and/or counseling patient: total time 58 minutes with more than 50% of time spent on symptom management, goals of care, family education and support Coding Level of Care Code 28288 INT INP/OBS CARE 3/75MIN Diagnoses Pain R52 Agitation R45.1 Palliative care encounter Z51.5
[2022-09-07] MEDS: FAMOTIDINE 20 MG in SYRINGE 3 ML IV SCH (15:43)
[2022-09-07] MEDS: ACETAMINOPHEN 1,000 MG/100 ML VIAL IV SCH (20:43)
[2022-09-08 02:01] LABS: A calco-baum cmplx NotReported Not Detected (NotDetected); Bact fragilis Not Reported Not Detected (NotDetected); C auris Not Reported Not Detected (NotDetected); CTX-M Resistant Gene Not Detected (NotDetected); Calbicans Not Reported Not Detected (NotDetected); Candida glabrata Not Reported Not Detected (NotDetected); Candida krusei Not Reported Not Detected (NotDetected); Cneoformans/gatti Not Reported Not Detected (NotDetected); Cparapsilosis Not Reported Not Detected (NotDetected); Ctropicalis Not Reported Not Detected (NotDetected); E cloacae compx Not Reported Not Detected (NotDetected); Efaecalis Not Reported Not Detected (NotDetected); Efaecium Not Reported Not Detected (NotDetected); Enterobacterales DETECTED (NotDetected); Enterobacterales Not Reported DETECTED (NotDetected); Escherichia coli Not Reported Not Detected (NotDetected); H influenzae Not Reported Not Detected (NotDetected); IMP Resistant Gene Not Detected (NotDetected); K aerogenes Not Reported Not Detected (NotDetected); KPC Resistant Gene Not Detected (NotDetected); Koxytoca Not Reported Not Detected (NotDetected); Kpneumoniae grp Not Reported Not Detected (NotDetected); Lmonocyt Not Reported Not Detected (NotDetected); N meningitidis Not Reported Not Detected (NotDetected); NDM Resistant Gene Not Detected (NotDetected); OXA 48 Like Resistant Gene Not Detected (NotDetected); P aeruginosa Not Reported Not Detected (NotDetected); Proteus spp Not Reported DETECTED (NotDetected); Salmonella spp Not Reported Not Detected (NotDetected); Smarcescens Not Reported Not Detected (NotDetected); Staph lugdunensis Not Reported Not Detected (NotDetected); Staph spp. Not Reported Not Detected (NotDetected); Staphaureus Not Reported Not Detected (NotDetected); Staphepi Not Reported Not Detected (NotDetected); Stenmaltophilia Not Reported Not Detected (NotDetected); Strep agal(GrpB) Not Reported Not Detected (NotDetected); Strep pneum Not Reported Not Detected (NotDetected); Strep pyog (GrpA) Not Reported Not Detected (NotDetected); Strep spp Not Reported Not Detected (NotDetected); VIM Resistant Gene Not Detected (NotDetected)
[2022-09-08 02:09] LABS: Proteus species DETECTED (NotDetected)
--- NOTE | 2022-09-08 06:05 | Electrocardiogram Report ---
Test Reason : Blood Pressure : / mmHG Vent. Rate : 082 BPM Atrial Rate : 081 BPM P-R Int : 000 ms QRS Dur : 112 ms QT Int : 368 ms P-R-T Axes : 000 -31 062 degrees QTc Int : 429 ms Poor data quality, interpretation may be adversely affected Sinus rhythm Premature atrial complexes Left axis deviation Incomplete right bundle branch block Possible Inferior infarct (cited on or before 15-JAN-2022) Abnormal ECG When compared with ECG of 15-JAN-2022 13:43, Vent. rate has increased BY 28 BPM Confirmed by Hugo Ko ([id number]) on 09/08/2022 6:04:50 AM Referred By: REFERRED SELF Confirmed By:Hugo Ko
[2022-09-08] MEDS: ACETAMINOPHEN 1,000 MG/100 ML VIAL IV SCH ×3 (08:49→20:23)
[2022-09-08] MEDS: FAMOTIDINE 20 MG in SYRINGE 3 ML IV SCH (08:51)
[2022-09-08] MEDS: cefTRIAXone SODIUM 1,000 MG in DEXTROSE 5% AD-VAN 50 ML IV SCH (09:12)
[2022-09-08] MEDS ORDERED: LORazepam 2 MG/1 ML VIAL IV PRN (11:08)
--- NOTE | 2022-09-08 12:35 | Palliative Care Progress Note ---
Date of Service September 08, 2022 Assessment & Plan (1) Pain: Plan: arthritis pain as well as headache with ICH Appears comfortable with routine tylenol Morphine available prn He has not needed morphine thus far (2) Agitation: Plan: Dementia with agitated behavior He has multiple risk factors for agitation with dementia, aphasia, UTI, hospitalization, ICH, medications He has been on multiple medications in the past but is not currently taking po medications Order for zyprexa as needed Order for lorazepam as needed Manage pain (3) Palliative care encounter: Plan: I met with Mrs. Patel and her son at bedside. They are discussing SNF placement with case management. We discussed options for hospice support at SNF. Answered their questions about symptom management and plan of care. Goal is focus on comfort and symptom management. Talked about what to expect. Mrs. Patel asked about prognosis which is likely days to weeks, particularly if he is not taking po. Admission and Anticipated Discharge Date Admission Date: September 07, 2022 Subjective More lethargic today, though family notes that he had been awake earlier. Mild agitation overnight per RN but generally rested well. Not eating or drinking. Review of Systems Review of Systems: Unobtainable due to cognitive status Physical Exam Constitutional: no acute distress Respiratory: normal respiratory effort; no labored breathing Musculoskeletal: Extremities: + muscle atrophy Neurologic: Speech / Cognition: normal cognition Results & Data Vital Signs (Past 12 Hours) Vital Signs Temp Pulse Resp BP Pulse Ox O2 Del Method 09/08/22 10:00 Room Air 09/08/22 07:42 97.5 F L 75 14 117/70 95 Room Air PG Care Time/CCT Total # of Minutes Spent Total Time Spent with Patient: Total time spent is greater than 50% in coordination of care (as documented) at patient's floor/unit and/or counseling patient: Coding Level of Care Code 48734 SUB INP/OBS CARE 1/25MIN Diagnoses Pain R52 Agitation R45.1 Palliative care encounter Z51.5
--- NOTE | 2022-09-08 19:31 | Hospitalist Progress Note ---
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 etc (6) Diarrhea: (7) Scalp laceration: Plan: Sutured in the ER (8) Goals of care, counseling/discussion: Plan: at this time family wishes to continue IV antibiotics but does not wish for additional labs, cultures, repeat head imaging, etc I discussed with them that the septicemia would typically lend itself to 2 weeks of IV/PO abx therapy Also discussed with them that we will know which way we are headed with his care plan over the next 1-2 days he may continue to decline in light of septicemia & ICH questions answered appreciate palliative care consultation Admission and Anticipated Discharge Date Admission Date: September 07, 2022 Subjective pt awake during the visit he kept leaning towards his right side I did see him moving the right arm, possibly the right leg as well by report slept ok overnight and 2 sons were present at bedside during the visit we discussed current issues - UTI, bacteremia, ICH, poor prognosis, etc tried to clarify with family if they wished to have IV fluids, repeat labs, repeat cultures, etc in addition to the IV abx for his UTI/bacteremia during the visit he was unable to offer any history significantly altered family reports he has had dementia for minimum 3 years if not much longer over last few months he has been declining, then declined further about 1 month ago, and then 1 week ago intermittently had hematuria and additional global decline with poor appetite, etc Review of Systems Review of Systems: Unobtainable due to cognitive status Physical Exam Physical Exam: gen - looks chronically unwell, cachectic, altered, leaning towards the right side constantly mouth - MM dry forehead - large dressing in place on left eyes - mild swelling left upper orbit & lid neck - no JVD heart - RRR, s1 s2 lungs - CTA b/l abd - soft, ?tenderness on flanks, no rebound ext - pulses 2+ b/l psych - a/o x 0 neuro - leaning to right, but strength seems 5/5 x 4 exts Results & Data Results & Data Vital Signs (Past 12 Hours) Vital Signs Temp Pulse Resp BP Pulse Ox O2 Del Method 09/08/22 10:00 Room Air 09/08/22 07:42 36.4 C L 75 14 117/70 95 Room Air Laboratory Results Laboratory Results - last 24 hr 09/07/22 12:05 Enterobacterales (PCR) DETECTED A Proteus species (PCR) DETECTED A blaIMP Car res Gene PCR Not Detected KPC-Carbap Res Gene PCR Not Detected blaNDM Car Res Gene PCR Not Detected OXA-48 Carbapenem Resis Gene (PCR) Not Detected blaVIM Car Res Gene PCR Not Detected CTX-M Gene Resistance (PCR) Not Detected Bld Cult ID Panel PCR See PCR Comment PG Care Time/CCT Total # of Minutes Spent Total Time Spent with Patient: Total time spent is greater than 50% in coordination of care (as documented) at patient's floor/unit and/or counseling patient: Coding Level of Care Code 00531 SUB INP/OBS CARE 2/35MIN Diagnoses Septicemia A41.9 Acute metabolic encephalopathy G93.41 Intracranial hemorrhage I62.9 Hematuria R31.9 Dementia F03.91 Dementia behavioral disturbance: with behavioral disturbance Dementia type: unspecified type Diarrhea R19.7 Scalp laceration S01.01XA Goals of care, counseling/discussion Z71.89 (5) Dementia Dementia behavioral disturbance: with behavioral disturbance Dementia type: unspecified type Qualified Code(s): F03.91 - Unspecified dementia with behavioral disturbance
[2022-09-08] MEDS: OLANZapine ZYDIS 5 MG ORALLY DIS. TAB PO PRN (21:38)
[2022-09-09] MEDS: cefTRIAXone SODIUM 1,000 MG in DEXTROSE 5% AD-VAN 50 ML IV SCH (08:07)
[2022-09-09] MEDS: ACETAMINOPHEN 1,000 MG/100 ML VIAL IV SCH ×3 (08:07→20:58)
[2022-09-09] MEDS ORDERED: cefTRIAXone SODIUM 1,000 MG in DEXTROSE 5% AD-VAN 50 ML IV ONE (08:15)
[2022-09-09] MEDS: FAMOTIDINE 20 MG in SYRINGE 3 ML IV SCH (09:56)
[2022-09-09] MEDS: OLANZapine ZYDIS 5 MG ORALLY DIS. TAB PO PRN (19:07)
[2022-09-09] MEDS: MoRPHine SULFATE 2 MG/ML CARP IV PRN (19:14)
--- NOTE | 2022-09-09 20:05 | Hospitalist Progress Note ---
Date of Service September 09, 2022 Assessment & Plan (1) Septicemia: Plan: WBC count of 17,000 at admission, altered MS, fall/weakness, elevated lactate of 2.4, proteus UTI, and blood cultures also positive for a gram negative bernard (likely to be the proteus). He also had had hematuria from the UTI and received an IV fluid bolus in the ER. The typical sepsis pathway was not fully carried out as he was discovered to have a frontal ICH on head CT from his traumatic head injury and early on it appeared he would be transitioned to full comfort care measures. He seems to be improving on a global scale with IV antibiotic therapy. He was more awake this afternoon and even ate dinner. I discussed with his family that the bacteremia would require at least 14 days of IV/PO abx. If the final blood cultures do indeed show proteus we may be able to change him from IV rocephin to PO cipro to complete his course IF he is able to take meds by mouth. We will have to see how he does over the next 1-2 days. (2) Acute metabolic encephalopathy: Plan: 2nd to #1 and #3 (3) Intracranial hemorrhage: Plan: Left sided frontal lobe hemorrhage 2nd to trauma aspirin d/c no further head CTs - he is partially comfort care / no escalation of care based on my discussions with the pt's & 2 sons they want to take a wait and see approach to how meaningful of a recovery he has (4) Hematuria: Plan: has cleared likely was 2nd to UTI (5) Dementia: Plan: severe end-stage progressive cachexia/anorexia etc (6) Diarrhea: Plan: none seen while here (7) Scalp laceration: Plan: Sutured in the ER L forehead (8) Goals of care, counseling/discussion: Plan: at this time family wishes to continue IV antibiotics but no escalation of care I discussed with them that the septicemia would typically lend itself to 2 weeks of IV/PO abx therapy Also discussed with them that we will know which way we are headed with his care plan over the next 1-2 days Will have to see if he makes sustained, daily improvement questions answered appreciate palliative care consultation and recs Admission and Anticipated Discharge Date Admission Date: September 07, 2022 Subjective patient apparently slept from about 7pm last night until about mid-day today since waking up he has not taken anything by mouth looking around the room mumbling unintelligible words not leaning to the right today son, at bedside they asked questions about whether to pursue repeat head CT, labs, etc we discussed that we may not know how he is going to do short-term for at least another 1-2 days due to the bacteremia & ICH no perceived pain or discomfort Review of Systems Review of Systems: Unobtainable due to cognitive status Physical Exam Physical Exam: gen - awake, looking around the room, occasionally holding his head, no verbage at any time other than "hi" mouth - MM dry forehead - large dressing in place on left eyes - mild swelling left upper orbit & lid - no change neck - no JVD heart - RRR, s1 s2, no murmur lungs - CTA b/l abd - soft, NT, ND, BS+, no obvious flank tenderness ext - pulses 2+ b/l psych - a/o x 0 neuro - strength appears symmetric b/l arms; increased tone b/l LEs Results & Data Results & Data Vital Signs (Past 12 Hours) Vital Signs O2 Del Method 09/09/22 09:00 Room Air Laboratory Results blood cx's - GNR urine cx - pansensitive proteus PG Care Time/CCT Total # of Minutes Spent Total Time Spent with Patient: Total time spent is greater than 50% in coordination of care (as documented) at patient's floor/unit and/or counseling patient: Coding Level of Care Code 06513 SUB INP/OBS CARE 2/35MIN Diagnoses Septicemia A41.9 Acute metabolic encephalopathy G93.41 Intracranial hemorrhage I62.9 Hematuria R31.9 Dementia F03.91 Dementia behavioral disturbance: with behavioral disturbance Dementia type: unspecified type Diarrhea R19.7 Scalp laceration S01.01XA Goals of care, counseling/discussion Z71.89 (5) Dementia Dementia behavioral disturbance: with behavioral disturbance Dementia type: unspecified type Qualified Code(s): F03.91 - Unspecified dementia with behavioral disturbance
[2022-09-10] MEDS: MoRPHine SULFATE 2 MG/ML CARP IV PRN (06:54)
[2022-09-10 07:47] LABS: Basophils # (auto) 0.02 K/uL (0-0.2); Basophils % (auto) 0.3 %; Eosinophils # (auto) 0.21 K/uL (0-0.50); Eosinophils % (auto) 2.8 %; Hematocrit (blood only) 40.5 % (42.0-52.0); Hemoglobin 14.1 g/dl (14.0-18.0); Immature Granulocytes # (auto) 0.04 K/uL (0.01-0.20); Immature Granulocytes % (auto) 0.5 %; Lymphocytes # (auto) 1.07 K/uL (1.2-3.4); Lymphocytes % (auto) 14.2 %; Mean Corpuscular Hemoglobin 32.3 pg (25.0-34.0); Mean Corpuscular Hgb Conc 34.8 g/dL (32.0-36.0); Mean Corpuscular Volume 92.9 fL (80.0-100.0); Mean Platelet Volume 10.6 fL (9.4-12.4); Monocytes # (auto) 0.61 K/uL (0.11-0.59); Monocytes % (auto) 8.1 %; Neutrophils # (auto) 5.61 K/uL (1.40-6.50); Neutrophils % (auto) 74.1 %; Platelet Count 214 K/uL (130-400); RDW Coefficient of Variation 13.1 % (11.5-14.5); RDW Standard Deviation 44.6 fL (36.4-46.3); Red Blood Count 4.36 M/uL (4.70-6.10); White Blood Count 7.56 K/ul (4.8-10.8)
[2022-09-10 08:13] LABS: Anion Gap 8 (3-11); BUN Creatinine Ratio 18.1 (10-20); Blood Urea Nitrogen 15 mg/dl (6-23); Calcium 8.9 mg/dl (8.6-10.3); Carbon Dioxide 29 mmol/L (21-32); Chloride 104 mmol/L (98-107); Est GFR (African American) 93.6 ml/min; Est GFR (Non-African American) 80.8 ml/min; Glucose 147 mg/dl (70-99(Fasting)); Magnesium 1.9 mg/dl (1.7-2.4); Potassium 3.7 mmol/L (3.5-5.1); Sodium 141 mmol/L (136-145)
[2022-09-10] MEDS ORDERED: cefTRIAXone SODIUM 2,000 MG in DEXTROSE 5% 50 ML IV SCH (09:00)
[2022-09-10] MEDS: FAMOTIDINE 20 MG in SYRINGE 3 ML IV SCH (11:48)
[2022-09-10] MEDS: ACETAMINOPHEN 1,000 MG/100 ML VIAL IV SCH (11:48)
[2022-09-10] MEDS ORDERED: CLONAZEPAM 0.5 MG SL PRN (12:35)
--- NOTE | 2022-09-10 12:35 | Palliative Care Progress Note ---
Date of Service September 10, 2022 Assessment & Plan (1) Pain: Plan: after fall with head injury and ICH He has been on tylenol IV and no longer has IV access Discussed use of roxanol prn with family They expressed concern about being able to give him his medication without IV access. Discussed sublingual administration of medications. (2) Agitation: Plan: He has a history of agitation and has been on multiple medications in the past. Family reports that he had increased agitation with lorazepam. UTI, head injury, pain, hospitalization increase risk of agitated delirium Discussed routine dosing of zyprexa with family. They are in agreement. If he did not tolerate lorazepam previously, clonazepam would be best choice for prn benzodiazepine. Discussed making slurry with crushed tablet and small amount of water with RN (3) Palliative care encounter: Plan: I spoke with family at [facility]. We talked about options to restart IV and continue antibiotics versus full comfort and symptom management approach to his care. His is tearful and expressed concern about prolonging his suffering. She and her three sons are all in agreement that Mr. Patel would not want life prolonging measures with his current baseline level of function. We discussed medications for symptom management and focus on comfort rather than disease management. They all agree that is what Mr. Patel would want at this time. Depending on po intake and infection, his prognosis is likely days to a couple weeks. Will monitor here for symptom management with possible transfer to SNF if he is stable. Discussed with Dr. Chong and case management. Admission and Anticipated Discharge Date Admission Date: September 07, 2022 Subjective Agitated during the night. He has had prn zyprexa x 2. He was also on zyprexa at [place], per his . He no longer has IV access. Nonverbal, restless Review of Systems Review of Systems: Unobtainable due to cognitive status Physical Exam Constitutional: restless Respiratory: normal respiratory effort; no labored breathing Musculoskeletal: Extremities: + muscle atrophy Neurologic: Speech / Cognition: + abnormal cognition aphasia Results & Data Vital Signs (Past 12 Hours) Vital Signs O2 Del Method 09/10/22 07:55 Room Air PG Care Time/CCT Total # of Minutes Spent Total Time Spent with Patient: Total time spent is greater than 50% in coordination of care (as documented) at patient's floor/unit and/or counseling patient: Coding Level of Care Code 51086 SUB INP/OBS CARE 2/35MIN Diagnoses Pain R52 Agitation R45.1 Palliative care encounter Z51.5
[2022-09-10] MEDS ORDERED: ACETAMINOPHEN 1,000 MG/100 ML VIAL IV PRN (13:10)
[2022-09-10] MEDS: MoRPHine SULFATE 10 MG/0.5 ML UDP PO PRN ×2 (17:02→22:23)
[2022-09-10] MEDS: ALPRAZolam 0.5 MG TABLET PO PRN (17:56)
[2022-09-10] MEDS ORDERED: TRIAMCINOLONE ACET 0.1% CR 80 GM TUBE EXT PRN (19:26)
--- NOTE | 2022-09-10 21:22 | Hospitalist Progress Note ---
Date of Service September 10, 2022 Assessment & Plan (1) Palliative care encounter: Plan: after last pm's events, loss of IV access, ongoing severe altered mental status (above & beyond severe dementia), etc family has elected to transition him to comfort measures only Dr Morgan from palliative care spoke with family and confirmed these wishes She is managing his medications for comfort gave support to family at bedside appreciate Dr Morgan's consultation (2) Comfort measures only status: Plan: as above (3) Septicemia: Plan: source - UTI pathogen - proteus met criteria for sepsis at time of admission stopping IV abx today - transitioning to comfort measures only (4) Acute metabolic encephalopathy: Plan: 2nd to #3, #5 ongoing (5) Intracranial hemorrhage: Plan: Left sided frontal lobe hemorrhage 2nd to trauma Treat for any perceived headache, etc (6) Hematuria: Plan: has cleared likely was 2nd to UTI (7) Dementia: Plan: severe end-stage progressive cachexia/anorexia transition to Comfort care pathway (8) Diarrhea: Plan: none seen while here (9) Scalp laceration: Plan: Sutured in the ER L forehead Plan support given to family dispo - SNF with hospice/comfort? - but that depends how stable he is and if he has rapid decline next 1-2 days Admission and Anticipated Discharge Date Admission Date: September 07, 2022 Subjective patient was agitated & restless overnight requiring multiple meds for optimal comfort IV access has been lost family at bedside - they state that last pm before they left he was attempting t o get out of bed frequently he did eat dinner last pm this am has not eaten thus far during my visit he was initially sleeping, then woke up and was attempting to throw his legs over the side railing and get out of bed occasionally he is holding his head as if in pain Review of Systems Review of Systems: Unobtainable due to cognitive status Physical Exam Physical Exam: gen - altered, speech unintelligible, attempting to get out of bed, difficult to redirect mouth - MM dry forehead - large dressing in place on left forehead - no change eyes - mild swelling left upper orbit & lid - no change ; mild ecchymoses left orbit neck - no JVD heart - RRR, s1 s2, no murmur lungs - CTA b/l ext - pulses 2+ b/l psych - a/o x 0 Results & Data Results & Data Laboratory Results Laboratory Results - last 24 hr 09/10/22 09/10/22 06:45 06:45 WBC 7.56 RBC 4.36 L Hgb 14.1 Hct 40.5 L MCV 92.9 MCH 32.3 MCHC 34.8 RDW Std Deviation 44.6 RDW Coeff of Jorge 13.1 Plt Count 214 MPV 10.6 Immature Gran % (Auto) 0.5 Neut % (Auto) 74.1 Lymph % (Auto) 14.2 Murray % (Auto) 8.1 Eos % (Auto) 2.8 Baso % (Auto) 0.3 Neut # (Auto) 5.61 Lymph # (Auto) 1.07 L Murray # (Auto) 0.61 H Eos # (Auto) 0.21 Baso # (Auto) 0.02 Immature Gran # (Auto) 0.04 Sodium 141 Potassium 3.7 Chloride 104 Carbon Dioxide 29 Anion Gap 8 BUN 15 Creatinine 0.83 Est Cr Clr Drug Dosing Not Reportable Est GFR ( Amer) 93.6 Est GFR (Non-Af Amer) 80.8 BUN/Creatinine Ratio 18.1 Glucose 147 H Calcium 8.9 Magnesium 1.9 PG Care Time/CCT Total # of Minutes Spent Total Time Spent with Patient: Total time spent is greater than 50% in coordination of care (as documented) at patient's floor/unit and/or counseling patient: Coding Level of Care Code 48685 SUB INP/OBS CARE 25MIN Diagnoses Palliative care encounter Z51.5 Comfort measures only status Z51.5 Septicemia A41.9 Acute metabolic encephalopathy G93.41 Intracranial hemorrhage I62.9 Hematuria R31.9 Dementia F03.91 Dementia behavioral disturbance: with behavioral disturbance Dementia type: unspecified type Diarrhea R19.7 Scalp laceration S01.01XA (7) Dementia Dementia behavioral disturbance: with behavioral disturbance Dementia type: unspecified type Qualified Code(s): F03.91 - Unspecified dementia with behavioral disturbance
--- NOTE | 2022-09-11 11:45 | Palliative Care Progress Note ---
Date of Service September 11, 2022 Assessment & Plan (1) Pain: Plan: with head injury after fall and history of arthritis. Continue roxanol prn. He has had two doses in last 24 hours (10mg OME) Talked with family about signs of pain (2) Agitation: Plan: History of dementia with agitation Continue routine zyprexa Alprazolam ordered prn He did not tolerate lorazepam in the past Monitor for adequate pain management (3) Palliative care encounter: Plan: I talked with Mrs. Patel and her son at bedside. We discussed role of medi cations for symptom management. They asked about sedation. We discussed progressive lethargy as he approaches his dying time regardless of medications. They would prefer that he be sleepy over agitated and restless. We also discussed what to expect with changes in breathing, skin, mental status. He is likely to within the next few days. Admission and Anticipated Discharge Date Admission Date: September 07, 2022 Subjective Some restlessness last night. Holding his head at times. Currently resting comfortably. No facial grimace. Review of Systems Review of Systems: Unobtainable due to cognitive status and Unobtainable due to reduced consciousness Physical Exam Constitutional: + ill appearing and + thin ENMT: Mouth: + dry oral mucous membranes Respiratory: normal respiratory effort; no labored breathing Musculoskeletal: Extremities: + muscle atrophy no mottling Neurologic: lethargic Results & Data Vital Signs (Past 12 Hours) Vital Signs Temp Pulse Resp BP Pulse Ox O2 Del Method 09/11/22 08:00 97.0 F L 61 12 138/98 95 Room Air PG Care Time/CCT Total # of Minutes Spent Total Time Spent with Patient: Total time spent is greater than 50% in coordination of care (as documented) at patient's floor/unit and/or counseling patient: Coding Level of Care Code 31439 SUB INP/OBS CARE 1/25MIN Diagnoses Pain R52 Agitation R45.1 Palliative care encounter Z51.5
[2022-09-11] MEDS: MoRPHine SULFATE 10 MG/0.5 ML UDP PO PRN (16:25)
--- NOTE | 2022-09-11 22:42 | Hospitalist Progress Note ---
Date of Service September 11, 2022 Assessment & Plan (1) Palliative care encounter: Plan: remains on comfort care pathway cont current meds including scheduled zyprexa BID cont morphine prn cont xanax prn offered for the hospital to call local [facility] to have scientific database curator come & give blessing to patient - family to think about this appreciate Dr Morgan's assistance (2) Comfort measures only status: Plan: as above (3) Septicemia: Plan: source - UTI pathogen - proteus met criteria for sepsis at time of admission stopped IV abx - now on comfort care (4) Acute metabolic encephalopathy: (5) Intracranial hemorrhage: Plan: Left sided frontal lobe hemorrhage 2nd to trauma Treat for any perceived headache, etc (6) Hematuria: Plan: has cleared likely was 2nd to UTI (7) Dementia: Plan: severe end-stage progressive cachexia/anorexia remains on comfort care pathway (8) Diarrhea: Plan: none seen while here (9) Scalp laceration: Plan: Sutured in the ER L forehead Plan support given to family anticipate he will likely pass here at the hospital next few days Admission and Anticipated Discharge Date Admission Date: September 07, 2022 Subjective slept all am and into the afternoon about 1600 or so he started to become a little restless occasionally tries to talk occasionally holds his head as if he is in pain UOP has dropped family feels that he is otherwise comfortable Review of Systems Review of Systems: Unobtainable due to cognitive status Physical Exam Physical Exam: gen - sleeping/lethargic, occasionally tries to talk (nonsensical) while his eyes are closed mouth - MM dry forehead - large dressing in place on left forehead - no change eyes - mild swelling left upper orbit & lid - no change ; mild ecchymoses left orbit neck - no JVD heart - RRR, s1 s2, no murmur lungs - CTA b/l abd - soft ext - pulses 2+ b/l PG Care Time/CCT Total # of Minutes Spent Total Time Spent with Patient: Total time spent is greater than 50% in coordination of care (as documented) at patient's floor/unit and/or counseling patient: Coding Level of Care Code 61611 SUB INP/OBS CARE 1/25MIN Diagnoses Palliative care encounter Z51.5 Comfort measures only status Z51.5 Septicemia A41.9 Acute metabolic encephalopathy G93.41 Intracranial hemorrhage I62.9 Hematuria R31.9 Dementia F03.91 Dementia behavioral disturbance: with behavioral disturbance Dementia type: unspecified type Diarrhea R19.7 Scalp laceration S01.01XA (7) Dementia Dementia behavioral disturbance: with behavioral disturbance Dementia type: unspecified type Qualified Code(s): F03.91 - Unspecified dementia with behavioral disturbance
[2022-09-12] MEDS: MoRPHine SULFATE 10 MG/0.5 ML UDP PO PRN (17:35)
[2022-09-12] MEDS: ALPRAZolam 0.5 MG TABLET PO PRN (17:52)
--- NOTE | 2022-09-12 20:27 | Hospitalist Progress Note ---
Date of Service September 12, 2022 Assessment & Plan (1) Palliative care encounter: Plan: remains on comfort care pathway cont current meds including scheduled zyprexa BID I am concerned that he is having ongoing headache/head pain from his recent L frontal lobe hemorrhage, head injury, etc thus, schedule roxanol 5mg TID and continue prn roxanol as well cont xanax prn offered for the hospital to call local [employer] [facility] to have medical interpreter come & give blessing to patient - family states they have already contacted the local Religion about this appreciate Dr Morgan's assistance from palliative care (2) Comfort measures only status: Plan: as above (3) Septicemia: Plan: source - UTI pathogen - proteus met criteria for sepsis at time of admission stopped IV abx - on comfort care (4) Acute metabolic encephalopathy: Plan: ongoing (5) Intracranial hemorrhage: Plan: Left sided frontal lobe hemorrhage 2nd to trauma start scheduled morphine 5mg TID for probable ongoing headaches/pain (6) Hematuria: Plan: has cleared likely was 2nd to UTI (7) Dementia: Plan: severe end-stage progressive cachexia/anorexia remains on comfort care pathway (8) Diarrhea: Plan: none seen while here (9) Scalp laceration: Plan: Sutured in the ER L forehead Plan support given to family anticipate he will likely pass here at the hospital next few days Admission and Anticipated Discharge Date Admission Date: September 07, 2022 Subjective slept all night and most of the day today woke up mid-afternoon per family 2 sons, , and grand-daughter were present at bedside still occasionally touches his head as if in pain from recent head injury took next to nothing by mouth today UOP dropping off Review of Systems Review of Systems: Unobtainable due to cognitive status Physical Exam Physical Exam: gen - sleeping/lethargic, holding head at times mouth - MM dry forehead - large dressing in place on left forehead - no change eyes - mild swelling left upper orbit & lid - no change ; mild ecchymoses left orbit neck - no JVD heart - RRR, s1 s2, no murmur lungs - CTA b/l abd - soft, no apparent tenderness ext - pulses 2+ b/l PG Care Time/CCT Total # of Minutes Spent Total Time Spent with Patient: Total time spent is greater than 50% in coordination of care (as documented) at patient's floor/unit and/or counseling patient: Coding Level of Care Code 46279 SUB INP/OBS CARE Diagnoses Palliative care encounter Z51.5 Comfort measures only status Z51.5 Septicemia A41.9 Acute metabolic encephalopathy G93.41 Intracranial hemorrhage I62.9 Hematuria R31.9 Dementia F03.91 Dementia behavioral disturbance: with behavioral disturbance Dementia type: unspecified type Diarrhea R19.7 Scalp laceration S01.01XA (7) Dementia Dementia behavioral disturbance: with behavioral disturbance Dementia type: unspecified type Qualified Code(s): F03.91 - Unspecified dementia with behavioral disturbance
[2022-09-12] MEDS: MoRPHine SULFATE 10 MG/0.5 ML UDP PO SCH (20:44)
[2022-09-13] MEDS: MoRPHine SULFATE 10 MG/0.5 ML UDP PO SCH ×3 (07:13→20:50)
[2022-09-13] MEDS: MoRPHine SULFATE 10 MG/0.5 ML UDP PO PRN ×2 (09:49→18:09)
--- NOTE | 2022-09-13 17:40 | Hospitalist Progress Note ---
Date of Service September 13, 2022 Assessment & Plan (1) Palliative care encounter: Plan: Patient remains on comfort care pathway - cont scheduled zyprexa BID - cont roxanol 5mg TID and continue prn roxanol as well - cont xanax prn offered for the hospital to call local [employer] to have early morning babysitter come & give blessing to patient - family states they have already contacted the local [employer] about this appreciate Dr Morgan's assistance from palliative care (2) Comfort measures only status: Plan: as above (3) Septicemia: Plan: source - UTI pathogen - proteus met criteria for sepsis at time of admission stopped IV abx - on comfort care (4) Acute metabolic encephalopathy: Plan: ongoing (5) Intracranial hemorrhage: Plan: Left sided frontal lobe hemorrhage 2nd to trauma start scheduled morphine 5mg TID for probable ongoing headaches/pain (6) Hematuria: Plan: has cleared likely was 2nd to UTI (7) Dementia: Plan: severe end-stage progressive cachexia/anorexia remains on comfort care pathway (8) Diarrhea: Plan: none seen while here (9) Scalp laceration: Plan: Sutured in the ER L forehead Plan support given to family anticipate he will likely pass here at the hospital next few days Admission and Anticipated Discharge Date Admission Date: September 07, 2022 Subjective Patient sleeping comfortably in bed -- present at bedside along with son and granddaughter. Family feels as though he is comfortable and decline need for additional treament Review of Systems 2 Review of Systems: Unobtainable due to cognitive status Physical Exam Constitutional: + frail appearing and + lethargic; not in distress Musculoskeletal: Head/Neck/Chest: normocephalic and head atraumatic Skin: no rashes, warm and dry Results & Data Results & Data Vital Signs (Past 12 Hours) Vital Signs Temp Pulse Resp BP Pulse Ox O2 Del Method 09/13/22 07:27 36.5 C 76 18 120/75 96 Room Air PG Care Time/CCT Total # of Minutes Spent Total Time Spent with Patient: Total time spent is greater than 50% in coordination of care (as documented) at patient's floor/unit and/or counseling patient: Coding Level of Care Code 81845 SUB INP/OBS CARE 1/25MIN Diagnoses Palliative care encounter Z51.5 Comfort measures only status Z51.5 Septicemia A41.9 Acute metabolic encephalopathy G93.41 Intracranial hemorrhage I62.9 Hematuria R31.9 Dementia F03.91 Dementia behavioral disturbance: with behavioral disturbance Dementia type: unspecified type Diarrhea R19.7 Scalp laceration S01.01XA (7) Dementia Dementia behavioral disturbance: with behavioral disturbance Dementia type: unspecified type Qualified Code(s): F03.91 - Unspecified dementia with behavioral disturbance
[2022-09-14] MEDS: MoRPHine SULFATE 10 MG/0.5 ML UDP PO SCH ×3 (07:56→19:35)
--- NOTE | 2022-09-14 12:08 | Palliative Care Progress Note ---
Date of Service September 14, 2022 Assessment & Plan (1) Pain: Plan: with history of arthritis, s/p fall with head injury Continue routine morphine dosing. He has not had any substantial hydration for approximately a week and likely has some degree of renal failure Monitor for myoclonus with possible opioid toxicity (2) Agitation: Plan: with dementia and aphasia He has a history of agitation Continue routine dosing of zyprexa (3) Terminal respiratory secretions: Plan: Nonpharmacological intervention with repostioning He has not had IV hydration for one week Glycopyrrolate available if needed for severe secretions Would not use O2 for symptom relief at this time, continue opioid (4) Palliative care encounter: Plan: Met with family at bedside. Reviewed what to expect. Discussed normal signs and symptoms with dying process. Answered questions about prognosis. He is likely to within the next couple days. Admission and Anticipated Discharge Date Admission Date: September 07, 2022 Subjective Started on scheduled morphine dosing TID over the weekend. He is lethargic and does not respond to voice or touch but appears comfortable. Family notes that he has been kicking his legs at times. RN reports that he tolerates routine care. He has had 20mg OME in last 24 hours. Some hypoxia, but he does not appear to have any distress. Review of Systems Review of Systems: Unobtainable due to reduced consciousness Physical Exam Constitutional: + cachectic; no acute distress ENMT: Mouth: + dry oral mucous membranes Respiratory: normal respiratory effort; no labored breathing mild tracheal secretions audible Cardiovascular: no mottling Musculoskeletal: Extremities: + muscle atrophy Skin: warm and dry Neurologic: + obtunded no myoclonus noted Results & Data Vital Signs (Past 12 Hours) Vital Signs Temp Pulse Resp BP Pulse Ox O2 Del Method 09/14/22 09:00 Room Air 09/14/22 07:41 99.1 F 104 H 22 100/67 81 L Room Air PG Care Time/CCT Total # of Minutes Spent Total Time Spent: 40 Total Time Spent with Patient: Total time spent is greater than 50% in coordination of care (as documented) at patient's floor/unit and/or counseling patient: symptom management, family education and support Coding Level of Care Code 91128 SUB INP/OBS CARE 2/35MIN Diagnoses Pain R52 Agitation R45.1 Terminal respiratory secretions R09.89 Palliative care encounter Z51.5
--- NOTE | 2022-09-14 18:07 | Hospitalist Progress Note ---
Date of Service September 14, 2022 Assessment & Plan (1) Palliative care encounter: Plan: remains on comfort care pathway cont current meds including scheduled zyprexa BID I am concerned that he is having ongoing headache/head pain from his recent L frontal lobe hemorrhage, head injury, etc thus, schedule roxanol 5mg TID and continue prn roxanol as well cont xanax prn appreciate Dr Morgan's assistance from palliative care (2) Comfort measures only status: Plan: as above (3) Septicemia: Plan: source - UTI pathogen - proteus met criteria for sepsis at time of admission stopped IV abx - on comfort care (4) Acute metabolic encephalopathy: Plan: ongoing (5) Intracranial hemorrhage: Plan: Left sided frontal lobe hemorrhage 2nd to trauma start scheduled morphine 5mg TID for probable ongoing headaches/pain (6) Hematuria: Plan: has cleared likely was 2nd to UTI (7) Dementia: Plan: severe end-stage progressive cachexia/anorexia remains on comfort care pathway (8) Diarrhea: Plan: none seen while here (9) Scalp laceration: Plan: Sutured in the ER L forehead Plan support given to family anticipate he will likely pass here at the hospital next few days Admission and Anticipated Discharge Date Admission Date: September 07, 2022 Subjective Patient appears comfortable. Accompanied by family at the bedside. Review of Systems Review of Systems: Other (Comfort care) Physical Exam Physical Exam: Appearance: Appears comfortable in bed Results & Data Results & Data Vital Signs (Past 12 Hours) Vital Signs Temp Pulse Resp BP Pulse Ox O2 Del Method 09/14/22 09:00 Room Air 09/14/22 07:41 37.3 C 104 H 22 100/67 81 L Room Air PG Care Time/CCT Total # of Minutes Spent Total Time Spent with Patient: Total time spent is greater than 50% in coordination of care (as documented) at patient's floor/unit and/or counseling patient: Coding Level of Care Code 66420 SUB INP/OBS CARE 06/24MIN Diagnoses Palliative care encounter Z51.5 Comfort measures only status Z51.5 Septicemia A41.9 Acute metabolic encephalopathy G93.41 Intracranial hemorrhage I62.9 Hematuria R31.9 Dementia F03.91 Dementia behavioral disturbance: with behavioral disturbance Dementia type: unspecified type Diarrhea R19.7 Scalp laceration S01.01XA (7) Dementia Dementia behavioral disturbance: with behavioral disturbance Dementia type: unspecified type Qualified Code(s): F03.91 - Unspecified dementia with behavioral disturbance
[2022-09-15] MEDS: MoRPHine SULFATE 10 MG/0.5 ML UDP PO SCH ×3 (08:05→20:11)
--- NOTE | 2022-09-15 09:39 | Palliative Care Progress Note ---
Date of Service September 15, 2022 Assessment & Plan (1) Pain: Plan: Controlled with routine dosing of morphine. PRN dosing available if needed (2) Agitation: Plan: Controlled with routine zyprexa Continue prn alprazolam (3) Palliative care encounter: Plan: Focus of care is comfort and symptom management. He is slowly declining and likely to within the next few days. Spoke with family at bedside. Admission and Anticipated Discharge Date Admission Date: September 07, 2022 Subjective Deeply lethargic. No facial grimace. Mild restlessness at times Review of Systems Review of Systems: Unobtainable due to cognitive status and Unobtainable due to reduced consciousness Physical Exam Constitutional: + cachectic ENMT: temporal wasting oral mucosa dry Respiratory: normal respiratory effort; no labored breathing (no audible tracheal secretions) Cardiovascular: Rate/Rhythm: regular rate and regular rhythm Musculoskeletal: Extremities: + muscle atrophy Neurologic: + obtunded Results & Data Vital Signs (Past 12 Hours) Vital Signs Temp Pulse Resp BP Pulse Ox O2 Del Method 09/15/22 07:26 99.9 F H 107 H 18 113/64 81 L Room Air PG Care Time/CCT Total # of Minutes Spent Total Time Spent with Patient: Total time spent is greater than 50% in coordination of care (as documented) at patient's floor/unit and/or counseling patient: Coding Level of Care Code 86918 SUB INP/OBS CARE 1/25MIN Diagnoses Pain R52 Agitation R45.1 Palliative care encounter Z51.5
--- NOTE | 2022-09-15 16:11 | Hospitalist Progress Note ---
Date of Service September 15, 2022 Assessment & Plan (1) Palliative care encounter: Plan: remains on comfort care pathway cont current meds including scheduled zyprexa BID I am concerned that he is having ongoing headache/head pain from his recent L frontal lobe hemorrhage, head injury, etc thus, schedule roxanol 5mg TID and continue prn roxanol as well cont xanax prn appreciate Dr Morgan's assistance from palliative care (2) Comfort measures only status: Plan: as above (3) Septicemia: Plan: source - UTI pathogen - proteus met criteria for sepsis at time of admission stopped IV abx - on comfort care (4) Acute metabolic encephalopathy: Plan: ongoing (5) Intracranial hemorrhage: Plan: Left sided frontal lobe hemorrhage 2nd to trauma start scheduled morphine 5mg TID for probable ongoing headaches/pain (6) Hematuria: Plan: has cleared likely was 2nd to UTI (7) Dementia: Plan: severe end-stage progressive cachexia/anorexia remains on comfort care pathway (8) Diarrhea: Plan: none seen while here (9) Scalp laceration: Plan: Sutured in the ER L forehead Plan support given to family anticipate he will likely pass here at the hospital next few days Admission and Anticipated Discharge Date Admission Date: September 07, 2022 Subjective Patient is surrounded by family. Physical Exam Physical Exam: Appearance: Appears comfortable in bed Results & Data Results & Data Vital Signs (Past 12 Hours) Vital Signs Temp Pulse Resp BP Pulse Ox O2 Del Method 09/15/22 15:00 Room Air 09/15/22 07:26 37.7 C H 107 H 18 113/64 81 L Room Air PG Care Time/CCT Total # of Minutes Spent Total Time Spent with Patient: Total time spent is greater than 50% in coordination of care (as documented) at patient's floor/unit and/or counseling patient: Coding Level of Care Code 77749 SUB INP/OBS CARE 25MIN Diagnoses Palliative care encounter Z51.5 Comfort measures only status Z51.5 Septicemia A41.9 Acute metabolic encephalopathy G93.41 Intracranial hemorrhage I62.9 Hematuria R31.9 Dementia F03.91 Dementia behavioral disturbance: with behavioral disturbance Dementia type: unspecified type Diarrhea R19.7 Scalp laceration S01.01XA (7) Dementia Dementia behavioral disturbance: with behavioral disturbance Dementia type: unspecified type Qualified Code(s): F03.91 - Unspecified dementia with behavioral disturbance
[2022-09-16] MEDS: MoRPHine SULFATE 10 MG/0.5 ML UDP PO PRN (02:10)
[2022-09-16] MEDS ORDERED: ACETAMINOPHEN 1,000 MG/100 ML VIAL IV STA (02:41)
[2022-09-16] MEDS: MoRPHine SULFATE 10 MG/0.5 ML UDP PO SCH ×3 (08:17→21:59)
--- NOTE | 2022-09-16 16:12 | Hospitalist Progress Note ---
Date of Service September 16, 2022 Assessment & Plan (1) Palliative care encounter: Plan: remains on comfort care pathway cont current meds including scheduled zyprexa BID I am concerned that he is having ongoing headache/head pain from his recent L frontal lobe hemorrhage, head injury, etc thus, schedule roxanol 5mg TID and continue prn roxanol as well cont xanax prn appreciate Dr Morgan's assistance from palliative care (2) Comfort measures only status: Plan: as above (3) Septicemia: Plan: source - UTI pathogen - proteus met criteria for sepsis at time of admission stopped IV abx - on comfort care (4) Acute metabolic encephalopathy: Plan: ongoing (5) Intracranial hemorrhage: Plan: Left sided frontal lobe hemorrhage 2nd to trauma start scheduled morphine 5mg TID for probable ongoing headaches/pain (6) Hematuria: Plan: has cleared likely was 2nd to UTI (7) Dementia: Plan: severe end-stage progressive cachexia/anorexia remains on comfort care pathway (8) Diarrhea: Plan: none seen while here (9) Scalp laceration: Plan: Sutured in the ER L forehead Plan support given to family anticipate he will likely pass here at the hospital next few days Admission and Anticipated Discharge Date Admission Date: September 07, 2022 Subjective Patient is surrounded by family. Review of Systems Review of Systems: Unobtainable due to mental health condition Physical Exam Physical Exam: Appearance: Appears comfortable in bed Results & Data Results & Data Vital Signs (Past 12 Hours) Vital Signs Temp Pulse Resp BP Pulse Ox O2 Del Method 09/16/22 07:21 36.8 C 105 H 20 116/74 77 L Room Air 09/16/22 05:34 37.8 C H PG Care Time/CCT Total # of Minutes Spent Total Time Spent with Patient: Total time spent is greater than 50% in coordination of care (as documented) at patient's floor/unit and/or counseling patient: Coding Level of Care Code 27126 SUB INP/OBS CARE 06/24MIN Diagnoses Palliative care encounter Z51.5 Comfort measures only status Z51.5 Septicemia A41.9 Acute metabolic encephalopathy G93.41 Intracranial hemorrhage I62.9 Hematuria R31.9 Dementia F03.91 Dementia behavioral disturbance: with behavioral disturbance Dementia type: unspecified type Diarrhea R19.7 Scalp laceration S01.01XA (7) Dementia Dementia behavioral disturbance: with behavioral disturbance Dementia type: unspecified type Qualified Code(s): F03.91 - Unspecified dementia with behavioral disturbance
--- NOTE | 2022-09-16 21:49 | Death Pronouncement Note ---
Date of Service September 16, 2022 Pronouncement Note Admission Date Admission Date: September 07, 2022 Contributing Factors (1) Palliative care encounter: (2) Comfort measures only status: (3) Septicemia: (4) Acute metabolic encephalopathy: (5) Intracranial hemorrhage: (6) Hematuria: (7) Dementia: (8) Diarrhea: (9) Scalp laceration: Summary Additional details: At approximately 9:30 PM, was notified by nurse that patient had . Went to bedside to examine the patient. No family present at bedside. On exam, was unable to detect radial pulse. No heart sounds heard on auscultation. No breath sounds heard on auscultation. No pupillary reflex. No corneal scratch reflex. Time of at conclusion of exam at 9:46 PM. Additional Data Attending physician: Manuela Gray MD Resident Activity Tracking Resident Involvement: Resident Care Provided and Maintenance Supervisor Mechanical Coverage Note Care Provided: Adult Hospital Medicine
--- NOTE | 2022-09-17 08:36 | Discharge Summary ---
Date of Service September 17, 2022 Admission HPI Per Admitting Provider Jose Patel is an 82 year old male on hospice at the memory care unit at [facility] who presents to the ER following a fall. Unable to get any history from patient. At baseline he is aphasic but generally mobile and feeds himself. Needs help getting dressed. Yesterday he was much less alert and sleeping throughout the day with hematuria. He was diagnosed with a UTI by hospice although unclear if urine sample was taken. He was started on Macrobid. This morning he was found on the floor next to his bed. He sustained a laceration to his left eyebrow. Reportedly he has been moving all four limbs since but generally isn't able to comply with neurological exams even prior to all of this. CT head showed a intraparenchymal left frontal lobe hemorrhage. He takes an aspirin daily but no anticoagulation. On discussion with the family since he is on hospice care they would not want any intervention for this if it were to progress. Admission Exam Per Admitting Provider Eyes: PERRL, conjunctivae normal, anicteric sclerae Respiratory: normal respiratory effort (shallow); no respiratory distress Auscultation: breath sounds present, no diminished lung sounds, no crackles, no rales, no rhonchi and no wheezes Cardiovascular: RRR, no murmur, no edema Gastrointestinal (Abdomen): normal bowel sounds, soft, nontender, no hepatosplenomegaly Skin: scalp laceration sutured in the ER, dressings not removed Neurologic: moves all extremities (reportedly by family although I was unable to confirm this) and awake (occasionally to voice) Psychiatric: Orientation: alert (occasionally to voice); + not oriented x 3 Genitourinary: no CVA tenderness Principal Diagnosis Proteus UTI with septicemia Acute metabolic encephalopathy Intracranial hemorrhage Hematuria Dementia Scalp laceration Discharge Exam General appearance: Patient appeared comfortable prior to Discharge Data Allergies Allergy/AdvReac Type Severity Reaction Status Date / Time divalproex sodium Allergy Intermediate Rash Verified 12/19/21 11:27 atenolol Allergy Mild Unknown Verified 09/08/22 12:13 piperacillin [From Zosyn] Allergy Mild rash Verified 12/19/21 11:27 rivastigmine Allergy Mild rash Verified 12/19/21 11:27 Sulfa (Sulfonamide Allergy Mild rash Verified 12/19/21 11:27 Antibiotics) tazobactam [From Zosyn] Allergy Mild rash Verified 12/19/21 11:27 lorazepam [From Ativan] AdvReac Severe Agitated Verified 09/08/22 12:13 Consultations 09/07/22 10:27 ED Decision to Admit Stat 09/07/22 10:52 Consult Palliative Care Stat Ordered Studies 09/07/22 08:52 CT cervical spine wo con Stat CT head/brain wo con Stat Hospital Course (1) Comfort measures only status: The patient was kept comfortable during the hospital stay. Plan The patient was on hospice care on the memory care unit at [facility]. He was brought into the ER following a fall. He sustained laceration of his left eyebrow. He was diagnosed with UTI. CT head showed intraparenchymal left frontal lobe hemorrhage. Decision was to continue hospice in the hospital. Patient was kept comfortable with palliative care on board. He on 09/16 at 9:46 PM. Total Time Total Time Spent Total Time Spent (In Minutes): 35 Discharge Plan Discharge Items Patient Disposition: Other Date/Time: 09/16/22 21:46 Coding Level of Care Code 56327 INP/OBS DISCH >30 MIN Diagnoses Comfort measures only status Z51.5
== END 2022-09-16 22:35 | disposition expired | DRG 951 ==
LOC: ED 08:02 → 3W 11:03 → SUATTDRO 11:03 → 3W 12:55